=== PATIENT | male | born 1940 | race Caucasian/White ===

== ENCOUNTER 2019-10-06 13:36 | Emergency (ER) | payer OTHER, MEDICARE ==
--- OUTSIDE RECORDS SUMMARY | 2019-10-06 13:39 | XMS REPORT ---
:1940 [facility] [address] [place] [address] Care Team Providers Name Role Phone Unavailable Unavailable Unavailable Problems This patient has no known problems. Allergies, Adverse Reactions, Alerts This patient has no known allergies or adverse reactions. Medications This patient has no known medications. Encounters Start End Encounter Admission Attending Care Care Encounter Date/Time Date/Time Type Type Clinicians Facility Department ID 2019-02-12 Inpatient [facility] [id number] 05:31:00 2019-01-26 2019-01-26 Outpatient [facility] 7501 12:51:00 12:51:00 2018-12-27 2018-12-27 Outpatient [facility] 7500 07:50:00 07:50:00
--- OUTSIDE RECORDS SUMMARY | 2019-10-06 13:39 | XMS REPORT | Summary of Care ---
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 Refills: 0 Active Carvedilol 12.5 MG Oral Tablet TAKE 1 TABLET TWICE DAILY. Refills: 0 Active Atorvastatin Calcium 10 MG Oral Tablet TAKE 1 TABLET TWICE DAILY Refills: 0 Active Levothyroxine Sodium 25 MCG Oral Tablet TAKE 1 TABLET DAILY. 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9) Status: Active Name Dates Details Family history of cardiac disorder (V17.49, Z82.49) Status: Active Social History Name Dates Details - Status: Name Dates Details Former smoker Vital Signs Date Test Result Details [id number] BP Systolic 155 mm[Hg] Status: Comments: Location: LUE; Position: Sitting BP Diastolic 71 mm[Hg] Status: Comments: Location: LUE; Position: Sitting Height 71 in Status: Weight 170 lb Status: Body Mass Index Calculated 23.71 kg/m2 Status: Body Surface Area Calculated 1.97 m2 Status: Heart Rate 68 /min Status: Comments: Location: L Radial; O2 SAT 93 % Status: Comments: Source: RA Results Date Description Value Details Results not documented Plan of Care Name Dates Details Planned Observations [N] 2D Echo complete, with Doppler [id number] On: 25-Mar-2020 Intent Planned Goals not documented Planned Encounters Appointment; AGUSTIN ROTH On: 25-Mar-2020 13:00 Appointment; MAURO CALDERON M.D. On: 25-Mar-2020 14:00 Instructions Name Dates Details Instructions not documented Encounters Appointment; MAURO CALDERON M.D. On: 09-Jan-2019 15:00 Encounter Diagnosis: Problem not documented Appointment; Neal Barbosa M.D. On: 26-Jan-2019 14:45 Encounter Diagnosis: Problem not documented Appointment; JENNIFER PRESCOTT M.D. On: 30-Jan-2019 11:00 Encounter Diagnosis: Problem not documented Appointment; MAURO CALDERON M.D. On: 30-Jan-2019 13:40 Encounter Diagnosis: Problem not documented Appointment; PROCEDURES, CARDIO On: 12-Feb-2019 11:00 Encounter Diagnosis: Problem not documented Appointment; AGUSTIN ROTH On: 27-Mar-2019 13:00 Encounter Diagnosis: Problem not documented
[2019-10-06 14:48] LABS: Absolute Lymphocytes (CBC) 1.3 K/uL (0.7-4.9); Basophils % 0.1 % (0-1.3); MPV 8.5 fL (7.6-11.3); RBC Red Blood Cell Count 1.43 M/uL (4.33-5.43)
[2019-10-06 14:58] LABS: Protime INR 1.03
[2019-10-06 15:15] LABS: ALT/SGPT 27 U/L (12-78); AST/SGOT 21 U/L (15-37); Albumin 2.7 g/dL (3.4-5.0); Alkaline Phosphatase 67 U/L (45-117); BUN Blood Urea Nitrogen 35 mg/dL (7-18); Bicarbonate 28 mmol/L (21-32); Bilirubin Direct 0.1 mg/dL (0-0.2); Bilirubin Total 0.3 mg/dL (0.2-1.0); CKMB Creatine Kinase MB 1.9 ng/mL (0.3-3.6); Creatine Phosphokinase 70 U/L (39-308); Glucose Level 115 mg/dL (74-106); Lipase 99 U/L (73-393); Potassium 4.2 mmol/L (3.5-5.1); Protein, Total 5.8 g/dL (6.4-8.2); Sodium Level 138 mmol/L (136-145); Troponin (Emerg Dept Use Only) < 0.02 ng/mL (0.0-0.045)
[2019-10-06 15:18] LABS: Thyroid Stimulating Hormone 1.81 uIU/mL (0.360-3.740)
--- NOTE | 2019-10-06 15:24 | RAD REPORT ---
EXAM DESCRIPTION: [facility] Single View10/06/2019 2:46 pm CLINICAL HISTORY: Chest pain COMPARISON: 2011 FINDINGS: The lungs appear clear of acute infiltrate. The heart is normal size IMPRESSION: No acute abnormalities displayed
[2019-10-06 15:31] LABS: Anisocytosis 2+; Blood Morphology Comment NOTED (NOT SEEN); Elliptocytes 2+; Hypochromasia 2+; Macrocytosis 1+; Platelet Estimate DECR; Poikilocytosis 2+; Rouleau 1; Teardrop Cell 1+
[2019-10-06] MEDS ORDERED: NA CHLORIDE 0.9% 1,000 ML ONE (17:23)
[2019-10-06] MEDS ORDERED: DIPHENHYDRAMINE 25 MG TAB/CAP ONE (17:24)
[2019-10-06] MEDS ORDERED: ACETAMINOPHEN 325 MG TABLET ONE (17:24)
--- NOTE | 2019-10-06 17:26 | ER ---
Nurse's Notes [facility] Name: Rod Mccray Age: 79 yrs Sex: Male : 1940 Arrival Date: 10/06/2019 Time: 13:41 Bed 26 Private MD: Jarek Edwards V Diagnosis: Myeloid leukemia-Acute phase Presentation: 10/06 13:53 Presenting complaint: Patient states: denies pain, denies N/V/D, reports productive jl7 cough and states "Just a little bit." states: He had abdominal aorta valve replaced in January 2019, last few weeks he has had decreased energy and appetite; pt appears pale and fatigued in triage. Transition of care: patient was not received from another setting of care. Onset of symptoms was August 2019. Risk Assessment: Do you want to hurt yourself or someone else? Patient reports no desire to harm self or others. Care prior to arrival: None. 13:53 Method Of Arrival: Wheelchair [facility] 13:53 Acuity: CELSO 2 jl 14:04 Initial Sepsis Screen: Does the patient meet any 2 criteria? Mean Arterial Pressure ss (MAP) < 65. HR > 90 bpm. Yes Does the patient have a suspected source of infection? Yes: Productive cough/pneumonia If YES to both, name of provider notified: Sancho LOZOYA Triage Assessment: 14:02 General: Appears uncomfortable, ill, Behavior is calm, cooperative, appropriate for 5 age. Pain: Denies pain. Respiratory: Reports shortness of breath at rest Airway is patent Respiratory effort is even, unlabored, Respiratory pattern is regular, symmetrical, Onset: The symptoms/episode began/occurred last week, the patient has mild shortness of breath. Historical: - Allergies: 14:02 No Known Allergies; jl7 - Home Meds: 14:02 atorvastatin 10 mg oral tab 1 tab once daily [Active]; carvedilol 3.125 mg oral tab 1 jl7 tab every 12 hours [Active]; clopidogrel 75 mg oral tab 1 tab once daily [Active]; lisinopril 5 mg Oral tab 1 tab [Active]; levothyroxine 25 mcg tab 1 tab once daily [Active]; - PMHx: 14:02 Hypothyroidism; jl7 - PSHx: 14:02 Aortic valve replacement; jl7 - Immunization history:: Adult Immunizations not up to date. - Coronavirus screen:: The patient has NOT traveled to [place], [place], or [place] in the past 14 days. Proceed with normal triage process as indicated. - Social history:: Smoking status: Patient denies any tobacco usage or history of. - Ebola Screening: : No symptoms or risks identified at this time. Screenin:37 Abuse screen: Denies threats or abuse. Denies injuries from another. Nutritional ls4 screening: No deficits noted. Tuberculosis screening: No symptoms or risk factors identified. Fall Risk None identified. Assessment: 14:37 General: Appears in no apparent distress. ill, cachectic, Behavior is calm, cooperative.ls4 14:39 Neuro: Level of Consciousness is obeys commands, lethargic, Oriented to person, place, ls4 time, situation, Reports dizziness. Respiratory:. Respiratory: Airway is patent Respiratory effort is shallow, weak, Respiratory pattern is regular, Breath sounds with crackles in right posterior lower lobe the patient has severe shortness of breath. GI: Abdomen is round non-distended, Bowel sounds present X 4 quads. GI: Abd is soft and non tender X 4 quads. Derm: Skin is dry, Skin is pale, Skin temperature is cool. 15:11 Reassessment: Patient appears in no apparent distress at this time. Patient and/or ls4 family updated on plan of care and expected duration. Pain level reassessed. Patient is alert, oriented x 3, equal unlabored respirations, skin warm/dry/pink. 16:00 Reassessment: Patient appears in no apparent distress at this time. No changes from ls4 previously documented assessment. Patient and/or family updated on plan of care and expected duration. Pain level reassessed. Patient is alert, oriented x 3, equal unlabored respirations, skin warm/dry/pink. 17:35 Reassessment: Patient appears in no apparent distress at this time. No changes from ls4 previously documented assessment. Patient and/or family updated on plan of care and expected duration. Pain level reassessed. Patient is alert, oriented x 3, equal unlabored respirations, skin warm/dry/pink. 17:40 Reassessment: TRANSFUSION PRBC STARTED. CONSENTS SIGNED. ls4 18:59 Reassessment: TRANSFUSION COMPLETE. PT TOLERATED WELL. SEE TRANSFUSION FLOW SHEET FOR ls4 VITAL SIGNS. PT TOLERATED WELL. Cardiovascular: No deficits noted. Respiratory: No deficits noted. 19:20 Reassessment: PLATELET TRANSFUSION STARTED. SEE FLOWSHEET. ls4 19:44 Reassessment: PLATELET TRANSFUSION COMPLETE. SEE FLOW SHEET PATIENT TOLERATED WELL. ls4 20:10 Reassessment: PRBC UNIT 2 STARTED. SEE FLOW SHEET. TRANSFUSION CONTINUED UPON DISCHARGE ls4 WITH EMS. SEE FLOWSHEET. Vital Signs: 14:02 BP 106 / 40; Pulse 104; Resp 19 S; Temp 98.1(O); Pulse Ox 96% on R/A; Weight 77.11 kg jl7 (R); Height 5 ft. 11 in. (180.34 cm) (R); Pain 0/10; 14:30 BP 107 / 52; Pulse 94; Resp 14; Pulse Ox 100% on 2 lpm NC; Pain 0/10; ls4 16:00 Pulse 96; Resp 14; Pulse Ox 100% on 2 lpm NC; Pain 0/10; ls4 17:00 BP 103 / 45; Pulse 98; Resp 14; Temp 98.1(O); Pulse Ox 100% on 2 lpm NC; Pain 0/10; ls4 19:00 BP 118 / 56; Pulse 98; Resp 14; Temp 98.9(O); Pulse Ox 97% on 2 lpm NC; Pain 0/10; ls4 14:02 Body Mass Index 23.71 (77.11 kg, 180.34 cm) jl7 14:30 PT O2 SATURATION DROPS TO 88 PER CENT WHILE SLEEPING. O2 APPLIED. ls4 Vitals: 14:30 Cardiac Rhythm Assessment Regular. ls4 ED Course: 13:41 Patient arrived in ED. ag5 13:41 Jarek Edwards MD is Private Physician. ag5 13:59 Triage completed. jl7 14:02 Arm band placed on right wrist. jl7 14:02 Patient has correct armband on for positive identification. Fall risk band placed. ls4 Placed in gown. Bed in low position. Call light in reach. Side rails up X 1. child monitor on. Pulse ox on. NIBP on. 14:02 Warm blanket given. Pillow given. Verbal reassurance given. ls4 14:02 No provider procedures requiring assistance completed. Inserted saline lock: 20 gauge ls4 in left antecubital area, using aseptic technique. Blood collected. Patient maintains SpO2 saturation greater than 95% on room air. 14:16 Sancho Collado PA is PHCP. jr8 14:16 Isacc Shelton MD is Attending Physician. jr8 14:36 Josette Springer, RN is Primary Nurse. ls4 14:36 EKG done, by fire technology instructor. reviewed by Sancho LOZOYA. at1 16:04 TSH Sent. ls4 16:04 T4 Free Sent. ls4 16:04 TS Sent. ls4 17:31 Bb Add On Sent. ls4 20:29 Patient transferred, IV remains in place. ls4 Administered Medications: 14:17 CANCELLED (Physician Discretion): NS 0.9% (30 ml/kg) 30 ml/kg IV at bolus once; Sepsis 8 Protocol 17:40 Drug: Tylenol 650 mg Route: PO; ls4 18:11 Follow up: Response: No adverse reaction ls4 17:40 Drug: Benadryl 25 mg Route: PO; ls4 18:10 Follow up: Response: No adverse reaction ls4 Outcome: 17:26 ER care complete, transfer ordered by . jr8 20:29 Patient left the ED. ls4 20:29 Transferred to [facility], Transfer form completed. X-rays sent w/ patient. ls4 20:29 Transferred Note: REPORT TO ARLENE GILLIAM RN [facility] 20:29 Condition: stable 20:29 Discharge instructions given to patient, family, Instructed on the need for transfer. Signatures: Shreya Brower RN RN Sancho Collado PA PA jr8 Meron Felton, buffer machine EKG Tat1 Karen Stevens RN RN jl7 Josette Springer, SHAINA RN ls4 Stephanie Davis ag5 Corrections: (The following items were deleted from the chart) 13:59 13:53 Initial Sepsis Screen: Does the patient meet any 2 criteria? Systolic BP < 90 jl7 mmHg. HR > 90 bpm. Yes Does the patient have a suspected source of infection? No. Patient's initial sepsis screen is negative. jl7 14:05 14:04 Initial Sepsis Screen: Does the patient meet any 2 criteria? Mean Arterial jl7 Pressure (MAP) < 65. HR > 90 bpm. Yes Does the patient have a suspected source of infection? Yes: Productive cough/pneumonia jl7 14:08 14:04 Initial Sepsis Screen: Does the patient meet any 2 criteria? Mean Arterial ss Pressure (MAP) < 65. HR > 90 bpm. Yes Does the patient have a suspected source of infection? Yes: Productive cough/pneumonia jl7 17:08 14:37 Cardiovascular: Rhythm is ls4 ls4 10/07 00:49 02 14:37 Cardiovascular: Rhythm is ls4 ls4 10/07 00:49 02 14:37 Reassessment: BLOOD TRANSFUSION STARTED ls4 ls4 10/07 00:51 02 18:59 Reassessment: TRANSFUSION COMPLETE. PT TOLERATED WELL. SEE TRANSFUSION FLOW ls4 SHEET FOR VITAL SIGNS. ls4
--- NOTE | 2019-10-06 17:27 | EDPHYS ---
Physician Documentation [facility] Name: Rod Mccray Age: 79 yrs Sex: Male : 1940 Arrival Date: 10/06/2019 Time: 13:41 Bed 26 Private MD: Jarek Edwards V ED Physician Isacc Shelton HPI: 10/06 15:08 This 79 yrs old Male presents to ER via Wheelchair with complaints of jr8 Breathing Difficulty, General Weakness, Decreased Appetite. 15:08 The patient has shortness of breath at rest. Onset: The symptoms/episode began/occurred jr8 gradually, 2 week(s) ago. Duration: The symptoms are continuous, and are steadily getting worse. The patient's shortness of breath has no apparent modifying factors. Associated signs and symptoms: Pertinent positives: dizziness, fatigue, malaise, increase in sleep. Severity of symptoms: At their worst the symptoms were moderate in the emergency department the symptoms are unchanged. The patient has not experienced similar symptoms in the past. The patient has not recently seen a physician. of patient stated that she noticed him sleeping more as of lately. Stated that it is now to the point where he will sleep days on end. Looks very pale and now is slurring speech. Also with decreased appetite and loss of weight. Historical: - Allergies: 14:02 No Known Allergies; jl7 - Home Meds: 14:02 atorvastatin 10 mg oral tab 1 tab once daily [Active]; carvedilol 3.125 mg oral tab 1 jl7 tab every 12 hours [Active]; clopidogrel 75 mg oral tab 1 tab once daily [Active]; lisinopril 5 mg Oral tab 1 tab [Active]; levothyroxine 25 mcg tab 1 tab once daily [Active]; - PMHx: 14:02 Hypothyroidism; jl7 - PSHx: 14:02 Aortic valve replacement; jl7 - Immunization history:: Adult Immunizations not up to date. - Coronavirus screen:: The patient has NOT traveled to [place], [place], or [place] in the past 14 days. Proceed with normal triage process as indicated. - Social history:: Smoking status: Patient denies any tobacco usage or history of. - Ebola Screening: : No symptoms or risks identified at this time. ROS: 17:33 Eyes: Negative for injury, pain, redness, and discharge, ENT: Negative for injury, jr8 pain, and discharge, Neck: Negative for injury, pain, and swelling, Cardiovascular: Negative for chest pain, palpitations, and edema, Respiratory: Negative for shortness of breath, cough, wheezing, and pleuritic chest pain, Abdomen/GI: Negative for abdominal pain, nausea, vomiting, diarrhea, and constipation, Back: Negative for injury and pain, MS/Extremity: Negative for injury and deformity. 17:33 Constitutional: Positive for fatigue, malaise. 17:33 Skin: Positive for pallor. 17:33 Neuro: Positive for altered mental status, dizziness, speech changes. Exam: 17:33 Eyes: Pupils equal round and reactive to light, extra-ocular motions intact. Lids and jr8 lashes normal. Conjunctiva and sclera are non-icteric and not injected. Pallor in appearance. Cornea within normal limits. Periorbital areas with no swelling, redness, or edema. ENT: Nares patent. No nasal discharge, no septal abnormalities noted. Tympanic membranes are normal and external auditory canals are clear. Oropharynx with no redness, swelling, or masses, exudates, or evidence of obstruction, uvula midline. Mucous membranes moist. Neck: Trachea midline, no thyromegaly or masses palpated, and no cervical lymphadenopathy. Supple, full range of motion without nuchal rigidity, or vertebral point tenderness. No Meningismus. Cardiovascular: Regular rate and rhythm with a normal S1 and S2. No gallops, murmurs, or rubs. Normal PMI, no JVD. No pulse deficits. Respiratory: Lungs have equal breath sounds bilaterally, clear to auscultation and percussion. No rales, rhonchi or wheezes noted. No increased work of breathing, no retractions or nasal flaring. Abdomen/GI: Soft, non-tender, with normal bowel sounds. No distension or tympany. No guarding or rebound. No evidence of tenderness throughout. Back: No spinal tenderness. No costovertebral tenderness. Full range of motion. MS/ Extremity: Pulses equal, no cyanosis. Neurovascular intact. Full, normal range of motion. 17:33 Skin: Appearance: Color: pale, Temperature: cool. 17:33 Neuro: Orientation: to person, place \T\ time. Mentation: able to follow commands, slow to respond, Memory: appropriate for stated age, Cranial nerves: CN I not tested, CN II- XII are normal as tested, visual amador are intact. extraocular movements are intact, Facial palsy and sensory deficits are absent. Nystagmus is absent. Speech is slowed, slurred, Tongue strength is normal, Motor: moves all fours, strength is 4/5 in the right arm, left arm, right leg and left leg, Sensation: no obvious gross deficits, Gait: not tested. seizure activity, is not displayed by the patient, Abnormal movements: there are no abnormal movements. Vital Signs: 14:02 BP 106 / 40; Pulse 104; Resp 19 S; Temp 98.1(O); Pulse Ox 96% on R/A; Weight 77.11 kg jl7 (R); Height 5 ft. 11 in. (180.34 cm) (R); Pain 0/10; 14:30 BP 107 / 52; Pulse 94; Resp 14; Pulse Ox 100% on 2 lpm NC; Pain 0/10; ls4 16:00 Pulse 96; Resp 14; Pulse Ox 100% on 2 lpm NC; Pain 0/10; ls4 17:00 BP 103 / 45; Pulse 98; Resp 14; Temp 98.1(O); Pulse Ox 100% on 2 lpm NC; Pain 0/10; ls4 19:00 BP 118 / 56; Pulse 98; Resp 14; Temp 98.9(O); Pulse Ox 97% on 2 lpm NC; Pain 0/10; ls4 14:02 Body Mass Index 23.71 (77.11 kg, 180.34 cm) jl7 14:30 PT O2 SATURATION DROPS TO 88 PER CENT WHILE SLEEPING. O2 APPLIED. ls4 MDM: 14:16 Patient medically screened. jr8 17:00 ED course: Long discussion with patient and family about severity of condition and need jr8 for transfer. Both understood . 17:33 Differential diagnosis: Myocardial Infarction pneumonia, pulmonary edema, Pulmonary jr8 Embolism Sepsis Acute anemia, GI bleed, Myocarditis, endocarditis, acute CHF, Cardiomyopathy, MDS. Data reviewed: vital signs, nurses notes, lab test result(s), EKG, radiologic studies, CT scan, plain films, ultrasound. Data interpreted: Pulse oximetry: on room air is 100 %. Interpretation: normal. Counseling: I had a detailed discussion with the patient and/or guardian regarding: the historical points, exam findings, and any diagnostic results supporting the discharge/admit diagnosis, lab results, radiology results, the need to transfer to another facility, [facility] does not immediately have the required specialist. ED course: Patient has history with [facility] and would like to be transferred there if possible. We reached out to them and accepted transfer . 10/06 14:11 Order name: Basic Metabolic Panel mg2 10/06 14:11 Order name: Blood Culture Adult (2) mg2 10/06 14:11 Order name: CBC with Diff mg2 10/06 14:11 Order name: Ckmb mg2 10/06 14:11 Order name: CPK mg2 10/06 14:11 Order name: Lactate mg2 10/06 14:11 Order name: LFT's mg2 10/06 14:11 Order name: Lipase mg2 10/06 14:11 Order name: Procalcitonin mg2 10/06 14:11 Order name: Protime (+inr) mg2 10/06 14:11 Order name: Ptt, Activated mg2 10/06 14:11 Order name: Troponin (emerg Dept Use Only) mg2 10/06 14:11 Order name: Urine Microscopic Only [facility] [place] [place] 10/06 14:17 Order name: TS [facility] 10/06 14:28 Order name: T4 Free [facility] 10/06 14:28 Order name: TSH [facility] 10/06 14:42 Order name: Glucose, Ancillary Testing; Complete Time: 15:29 EDMS 10/06 15:00 Order name: Protime (+INR); Complete Time: 15:29 EDMS 10/06 15:00 Order name: PTT, Activated Partial Thromb; Complete Time: 15:29 EDMS 10/06 15:16 Order name: Basic Metabolic Panel; Complete Time: 15:29 EDMS 10/06 15:16 Order name: Liver (Hepatic) Function; Complete Time: 15:29 EDMS 10/06 15:16 Order name: Creatine Phosphokinase; Complete Time: 15:29 EDMS 10/06 15:16 Order name: CKMB Creatine Kinase MB; Complete Time: 15:29 EDMS 10/06 15:16 Order name: Troponin (Emerg Dept Use Only); Complete Time: 15:29 EDMS 10/06 15:16 Order name: Lipase; Complete Time: 15:29 EDMS 10/06 15:19 Order name: Lactate; Complete Time: 15:29 EDMS 10/06 15:19 Order name: T4 Free; Complete Time: 15:29 EDWI 10/06 15:19 Order name: Thyroid Stimulating Hormone; Complete Time: 15:29 EDMS 10/06 15:27 Order name: Procalcitonin; Complete Time: 15:29 EDMS 10/06 14:11 Order name: Chest Single View XRAY [facility] [place] [place] 10/06 14:11 Order name: Accucheck; Complete Time: 14:51 [facility] [place] [place] 10/06 14:11 Order name: Cardiac monitoring; Complete Time: 14:51 [facility] [place] 10/06 14:11 Order name: EKG - Nurse/Tech; Complete Time: 14:51 [facility] [place] 10/06 14:11 Order name: IV Saline Lock - Large Bore; Complete Time: 14:51 [facility] [place] 10/06 14:11 Order name: Labs collected and sent; Complete Time: 14:51 [facility] [place] [place] 10/06 14:11 Order name: O2 Per Protocol; Complete Time: 14:51 [facility] [place] [place] 10/06 14:11 Order name: O2 Sat Monitoring; Complete Time: 14:50 [facility] [place] [place] 10/06 14:11 Order name: Urine Dipstick-Ancillary (obtain specimen) [facility] [place] [place] 10/06 14:38 Order name: Echo w/ Doppler [facility] 10/06 15:28 Order name: CBC with Automated Diff; Complete Time: 15:59 EDWI 10/06 15:30 Order name: Manual Differential; Complete Time: 15:59 EDWI 10/06 15:40 Order name: RAD; Complete Time: 15:59 EDWI 10/06 15:41 Order name: Type and Screen [facility] 10/06 16:36 Order name: Bb Add On bd Administered Medications: 14:17 CANCELLED (Physician Discretion): NS 0.9% (30 ml/kg) 30 ml/kg IV at bolus once; Sepsis [facility] Protocol 17:40 Drug: Tylenol 650 mg Route: PO; ls4 18:11 Follow up: Response: No adverse reaction ls4 17:40 Drug: Benadryl 25 mg Route: PO; ls4 18:10 Follow up: Response: No adverse reaction ls4 Disposition: 17:38 Critical Care:. [facility] Disposition: 10/06/19 17:26 Transfer ordered to Other Acute Care Facility. Diagnosis is Myeloid leukemia - Acute phase . - Reason for transfer: Higher level of care. - Accepting physician is Dr. Santillan. - Condition is Fair. - Problem is new. - Symptoms are unchanged. Critical care time excluding procedures: 17:38 Critical care time: Bedside Care: 20 minutes, Consultation: 10 minutes, Family jr8 Intervention: 10 minutes. Total time: 40 minutes Addendum: 10/08/2019 08:00 Co-signature as Attending Physician, Isacc Shelton MD I agree with the assessment and c melgar plan of care. Signatures: Dispatcher [employer] EDIsacc Jenkins MD MD cha Roszak, Josh, PA PA jr8 Karen Stevens, RN RN jl7 Robe Knight RN RN mg2 Josette Springer RN RN ls4 Corrections: (The following items were deleted from the chart) 10/06 14:17 14:11 NS 0.9% (30 ml/kg) 30 ml/kg IV at bolus once; Sepsis Protocol ordered. mg2 jr8 20:29 17:26 10/06/2019 17:26 Transfer ordered to Other Acute Care Facility. Diagnosis is ls4 Myeloid leukemia - Acute phase . Reason for transfer: Higher level of care. Accepting physician is Dr. Santillan. Condition is Fair. Problem is new. Symptoms are unchanged. jr8
--- NOTE | 2019-10-06 18:43 | EKG ---
Test Date: 2019-10-06 Test Time: 14:17:09 Gauge Maker: KATHERINE MEASUREMENT RESULTS: Intervals: Rate: 97 LA: 140 QRSD: 110 QT: 368 QTc: 467 Vida: P: -4 LA: 140 QRS: -49 T: 101 INTERPRETIVE STATEMENTS: Normal sinus rhythm Left anterior fascicular block Moderate voltage criteria for LVH, may be normal variant ST & T wave abnormality, consider lateral ischemia Prolonged QT Abnormal ECG Compared to ECG 04/20/2008 09:21:01 Left ventricular hypertrophy now present ST (T wave) deviation now present Possible ischemia now present Prolonged QT interval now present Intraventricular conduction delay no longer present Electronically Signed On 10-06-19 18:43:10 ASSOCIATE MUSIC PROFESSOR by Etienne Urena
[2019-10-06] MEDS ORDERED: LEVALBUTEROL 0.63 MG/3 ML NEB ONE ×2 (21:11)
[2019-10-06] MEDS ORDERED: IPRATROPIUM BROM 0.5MG/2.5ML ONE (21:12)
--- NOTE | 2019-10-07 08:00 | ECHO ---
HEIGHT: 5 ft 11 in WEIGHT: 170 lb oz DATE OF STUDY: 10/06/[address]: José Miguel Collado 2-DIMENSIONAL: YES M.MODE: YES DOPPLER: YES COLOR FLOW: YES TDS: NO PORTABLE: YES DEFINITY: NO BUBBLE STUDY: NO DIAGNOSIS: AORTIC VALVE REPLACEMENT, FATIGED ANEMIC CARDIAC HISTORY: CATHERIZATION: YES SURGERY: NO PROSTHETIC VALVE: NO PACEMAKER: YES MEASUREMENTS (cm) DIASTOLIC (NORMALS) SYSTOLIC (NORMALS) IVSd 1.2 (0.6-1.2) LA Diam 3.1 (1.9-4.0) LVEF 70% LVIDd 3.8 (3.5-5.7) LVIDs 2.3 (2.0-3.5) %FS 39% LVPWd 1.3 (0.6-1.2) Ao Diam 2.7 (2.0-3.7) 2 DIMENSIONAL ASSESSMENT: RIGHT ATRIUM: NORMAL LEFT ATRIUM: NORMAL RIGHT VENTRICLE: NORMAL LEFT VENTRICLE: LEFT VENTRICULAR HYPERTROPHY TRICUSPID VALVE: NORMAL MITRAL VALVE: NORMAL PULMONIC VALVE: NORMAL AORTIC VALVE: BIOPROSTHETIC TRANSCATHETER AORTIC VALVE REPLACEMENT PERICARDIAL EFFUSION: NONE AORTIC ROOT: NORMAL LEFT VENTRICULAR WALL MOTION: NORMAL DOPPLER/COLOR FLOW: IMPAIRED LEFT VENTRICULAR RELAXATION. NO AORTIC STENOSIS OR AORTIC REGURGITATION. MILD TRICUSPID REGURGITATION. NORMAL RIGHT VENTRICULAR SYSTOLIC PRESSURE. COMMENTS: NORMAL LEFT VENTRICULAR EJECTION FRACTION. LEFT VENTRICULAR HYPERTROPHY. BIOPROSTHETIC AORTIC VALVE WITH NO AORTIC STENOSIS OR AORTIC REGURGITATION. MILD TRICUSPID REGURGITATION. TECHNOLOGIST: Myles CHAKRABORTY
[2019-10-08 11:12] VITALS: BP 118/56; TEMP 98.9; O2SAT 97
== END 2019-10-06 20:29 ==
LOC: ER 13:36
PROC: 30233R1 Transfusion of Nonautologous Platelets into Peripheral Vein, Percutaneous Approach (ICD-10-PCS; principal; 2019-10-06)
PROC: 30233N1 Transfusion of Nonautologous Red Blood Cells into Peripheral Vein, Percutaneous Approach (ICD-10-PCS; 2019-10-06)
DX: C92.00 Acute myeloblastic leukemia, not having achieved remission (principal); E03.9 Hypothyroidism, unspecified; Z95.4 Presence of other heart-valve replacement
CPT/HCPCS: 93005; 93306; 87040 ×2; 85025; 80048; 36415; 86900; 86850; 82550; 85610; 86901; 82947; 80076; 83605; 85730; 84443; 84484; 82553; 84439; 83690; 84145; 71045; 36430; P9035; P9016 ×2; J7040; 99285

== ENCOUNTER 2020-02-03 13:33 | Emergency (ER) | payer OTHER, MEDICARE ==
--- OUTSIDE RECORDS SUMMARY | 2020-02-03 13:43 | XMS REPORT | Continuity of Care Document ---
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 Medica l (disorder) Center,[facility] 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 Medical (disorder) Center,[facility] [place] NONRHEUMATIC Active [facility] AORTIC (VALVE) Medic al STENOSIS Center Medications Medication Details Route Status Patient Ordering Order Source Instructions Provider Date clopidogrel 75 75 mg = 1 tab, Active [place] mg oral tablet PO, Daily, # 30 2019 M edical tab, 6 Center Refill(s) carvedilol 3.125 3.125 mg = 1 Active [place] mg oral tablet tab, PO, Q12H, 2019 [place] # 60 tab, 3 Center Refill(s) lisinopril 5 mg 5 mg = 1 tab, Active [place] oral tablet PO, Daily, # 30 2019 [facility] peter tab, 1 Center Refill(s) Aspirin 81 MG 81 mg = 1 tab, Active [facility] Enteric Coated PO, Daily, # 30 2019 M edical Tablet tab, 1 Center Refill(s) levothyroxine 25 25 microgram = Active [facility] mcg (0.025 mg) 1 tab, PO, 2019 Medica l oral tablet Daily, # 30 Center tab, 1 Refill(s) atorvastatin 10 10 mg = 1 tab, Active 02/13/ M [facility] [place] mg oral tablet PO, Daily, # 30 2019 M edical tab, 1 Center Refill(s) heparin Notes: porcine Inactive [facility] heparin 2019 [facility] Chondroitin Route: PO, Inactive [facility] Sulfates 400 MG Dosing Weight 2019 Me dical / Glucosamine 77.727, kg, Center hydrochloride Daily, Start 500 MG Oral date: 02/13/19 Tablet 9:00:00 CDT, Duration: 30 day, Stop date: 03/14/19 9:00:00 CDT clopidogrel Notes: (Same Inactive [place] As: Plavix) 2019 [facility] Calcitrate with Notes: (Same Inactive [facility] D As: OsCal-D 2019 Medical 250) Center Vitamin C Notes: (Same Inactive 02/13[facility] as: Vitamin C) 2019 [facility] Aspirin Notes: Do not Inactive 02/13[facility] crush or chew. 2019 Medical (Same As: Center Ecotrin) Thyroxine Notes: Take 1 Inactive 02/13[facility] [place] hour before or 2019 Medical 2 hours after Center meal; Enteral feeds may interefere with the absorption of this medication. (Same as:Levothroid) Lisinopril Notes: (Same Inactive 02/13[facility] [place] as: Prinivil, 2019 [facility] Zestril) Center sodium phosphate Notes: Infuse Inactive 02/13[facility] over 4 hour. Do [facility] Medical not infuse Center phosphorous concurrently in the same line as TPN or IVF that contains calcium. For double lumen central lines, phosphorous may be infused in a separate lumen from TPN. Potassium Notes: (Same Inactive 02/13[facility] Chloride as: Potassium 2019 [facility] Chloride) Center potassium Notes: (Same Inactive 02/13[facility] phosphate as: K 2019 Medical Phosphate.) Do [place] not infuse phosphorous concurrently in the same line as TPN or IVF that contains calcium. For double lumen central lines, phosphorous may be infused in a separate lumen from TPN. 1 mMol phoshate has 1.47 mEq potassium Infuse over 4 hours Calcium Notes: WASTE: Inactive [facility] Gluconate F/P - Sink; E - 2019 [facility]ica [facility] Bin Magnesium Oxide Notes: (Same Inactive 02/13[facility] as: Mag-Ox 400) [address] [place] [address] Magnesium oxide [place] [id number] elemental magnesium Dose=____mg magnesium oxide (___mg elemental magnesium) Calcium Notes: (Same Inactive [place] Carbonate 500 MG As: Tums) 2019 Medic al Chewable Tablet Calcium [place] Carbonate 500 mg = 200 mg elemental calcium Dose = mg calcium carbonate ( mg elemental calcium) Magnesium Notes: WASTE: Inactive [place] Sulfate F/P - Sink; E - [address] [facility] Bin potassium Notes: (Same Inactive [place] phosphate-sodium as: Phos-NaK) 2019 edical phosphate 250 Each 1.5 gm pkt Ce nter mg-280 mg-160 mg has 250mg oral powder for phosphorous. reconstitution Mix w/2.5oz water and stir. carvedilol Notes: Give No Longer [place] with food. Active 2019 Medical (Same As: Center Coreg) atorvastatin Notes: (Same No Longer [place] As: Lipitor) Active 2019 [facility] Center Nicardipine Notes: Same as: No Longer [place] Cardene Active 2019 Medical Concentration: [place] (0.2 mg /1 ml ) pantoprazole Notes: Tablet No Longer [place] should not be Active 2019 Medical chewed or Center crushed. (Same as: Protonix) carvedilol Notes: Give Inactive [place] with food. 2019 Medical (Same As: Center Coreg) Cefazolin Notes: (Same Inactive [place] As: Ancef, 2019 Medical Kefzol) Center MEDICATION WASTE Product Size: 1000 mg Product Wasted: ___ mg glycopyrrolate Route: IV, Drug Inactive [place] (ANES) form: INJ, 2019 Medical ONCE, Stop Center date: 02/12/19 11:35:00 CDT neostigmine Route: IV, Drug Inactive [facility] (ANES) form: INJ, 2019 Medical ONCE, Stop Center date: 02/12/19 11:35:00 CDT Naloxone Notes: Same as In[place] Narcan 2019 [facility] Flumazenil Notes: (Same Inactive [place] as: Romazicon) 2019 Medical Center Ondansetron Notes: (Same Inactive [place] as: Zofran) 2019 Medical MEDICATION Center WASTE Product Size: 4 mg Product Wasted: ___ mg Hydralazine Notes: (Same Inactive [place] as: Apresoline) 2019 Medical Push over 5 Center minutes Oxycodone Notes: (Same Inactive [place] as: 2019 Medical 'Roxicodone) Center Ibuprofen Notes: (Same Inactive [facility] as: Motrin) "Do 2019 Medical Not Crush" Center Take with food. protamine (ANES) Route: IV, Drug Inactive [place] 10 mg form: INJ, 2018 Medical Start date: Center 02/12/19 10:52:00 CDT, Stop date: 02/12/19 11:52:00 CDT calcium chloride Route: IV, Drug Inactive [place] (ANES) form: INJ, 2018 Medical ONCE, Stop Center date: 02/12/19 10:41:00 CDT ondansetron Route: IV, Drug Inactive [place] (ANES) form: INJ, 2018 Medical ONCE, Stop Center date: 02/12/19 10:41:00 CDT acetaminophen Route: IV, Drug Inactive 02/12/ M [facility] [place] (ANES) 10 mg form: INJ, 2018 Medical Start date: Center 02/12/19 10:09:00 CDT, Stop date: 02/12/19 11:09:00 CDT heparin (ANES) Route: IV, Drug Inactive [place] form: INJ, 2018 Medical ONCE, Stop Center date: 02/12/19 9:55:00 CDT EPINEPHrine Route: IV, Drug Inactive [place] (ANES) form: INJ, 2018 Medical ONCE, Stop Center date: 02/12/19 9:50:00 CDT norepinephrine Route: IV, Drug Inactive [place] (ANES) form: INJ, 2018 Medical ONCE, Stop Center date: 02/12/19 9:30:00 CDT vasopressin Route: IV, Drug Inactive [place] (ANES) form: INJ, 2018 Medical ONCE, Stop Center date: 02/12/19 9:24:00 CDT lidocaine (ANES) Route: IV, Drug Inactive [place] form: INJ, 2019 Medical ONCE, Stop Center date: 02/12/19 9:19:00 CDT propofol (ANES) Route: IV, Drug Inactive [place] form: INJ, 2019 Medical ONCE, Stop Center date: 02/12/19 9:14:00 CDT rocuronium Route: IV, Drug Inactive [place] (ANES) form: INJ, 2019 Medical ONCE, Stop Center date: 02/12/19 9:14:00 CDT fentaNYL (ANES) Route: IV, Drug Inactive [place] form: INJ, 2019 Medical ONCE, Stop Center date: 02/12/19 9:14:00 CDT ceFAZolin (ANES) Route: IV, Drug Inactive [facility] form: INJ, 2019 Medical ONCE, Stop Center date: 02/12/19 9:09:00 CDT Docusate Notes: (Same No Longer [place] as: Colace) (Do Active 2018 Medical Not Crush) Center POLYETHYLENE Notes: Dissolve No Longer 02/12/ [facility] GLYCOL 3350 in 8 oz of Active 2019 Medical water or juice. Center (Same as: Miralax) Sodium Chloride Route: IV, Inactive [place] 0.9% IV (ANES) Total Volume: 2019 Med ical 1000 mL 1,000, Start Center date: 02/12/19 8:25:00 CDT, Stop date: 02/12/19 9:25:00 CDT Ondansetron Notes: (Same No Longer [place] as: Zofran) Active 2019 Medical MEDICATION Center WASTE Product Size: 4 mg Product Wasted: ___ mg Acetaminophen Notes: Infuse No Longer [facility] over 15 minutes Active 2019 Medical Do not exceed Center 4gm/day of acetaminophen MEDICATION WASTE Product Size: 1000 mg Product Wasted: ___ mg Nicardipine Notes: Same as: Inactive [place] Cardene 2019 Medical Concentration: Center (0.2 mg /1 ml ) atorvastatin 10 10 mg = 1 tab, No Longer [facility] mg oral tablet PO, Daily, 0 Active 2019 [facility] peter Refill(s) Center Exparel Notes: (Same No Longer [facility] as: Exparel) Active 2019 Medical NOT FOR IV Center use Postoperative analgesia: Infiltration (local): Dose is based on surgical site and volume required to cover the area (in general, the maximum total dose is 266 mg). Bunionectomy: 7 mL into the tissues surrounding the osteotomy and 1 mL into the subcutaneous tissue of the surgical site (total dose = 8 mL [106 mg]) Hemorrhoidectom y: 30 mL (20 mL vial diluted with 10 mL NS) divided and administered as 6 injections of 5 mL each (total dose = 30 mL [266 mg]) Interscalene brachial plexus nerve block: Single dose: Total shoulder arthroplasty or rotator cuff repair: 133 mg (10 mL) Sodium Chloride 250 mL, 250 Inactive [place] 0.9% (Bolus) IV ml/hr, Infuse 2019 [place] Over: 1 hr, Center Route: IV, 250, Drug form: INJ, ONCALL, Priority: Routine, Dosing Weight 77.273 kg, Start date: 02/12/19 6:00:00 CDT, Duration: 1 doses or times Sodium Chloride 750 mL, Rate: No Longer [place] 0.9% IV 750 mL 75 ml/hr, Active 2019 Medical Infuse over: 10 Center hr, Route: IV, Dosing Weight 77.273 kg, Total Volume: 750, Start date: 02/12/19 5:53:00 CDT, Duration: 24 hr, Stop date: 02/13/19 5:52:00 CDT, 1.98, m2 Sodium Chloride 250 mL, Rate: No Longer [place] 0.9% (titrate) To prime line Active 2019 Med ical 250 mL and flush Center remaining blood products., Dosing Weight 77.273, kg, Route: IV, Total Volume: 250, Start Date: 02/12/19 5:53:00 CDT, Duration: 30 day, Stop date: 03/14/19 5:52:00 CDT, Replace Every: 24 hr simvastatin 10 10 mg = 1 tab, Active mg oral tablet PO, Bedtime, # 2018 [place] 30 tab, 3 Refill(s) clopidogrel 75 75 mg = 1 tab, Active mg oral tablet PO, Daily, # 2019 [place] tab, 6 Refill(s) carvedilol 3.125 3.125 mg = 1 Active [facility] mg oral tablet tab, PO, Q12H, 2019 [place] # 60 tab, 3 Refill(s) Calcitrate with Notes: (Same Inactive D As: OsCal-D 2019 [place] 250) Vitamin C Notes: (Same Inactive as: Vitamin C) 2019 [place] clopidogrel Notes: (Same Inactive As: Plavix) 2019 [place] Aspirin 81 MG Notes: Take Inactive Chewable Tablet with food. 2019 [place] and Thyroxine Notes: Take 1 Inactive [facility] hour before or 2019 [place] 2 hours after meal; Enteral feeds may interefere with the absorption of this medication. (Same as:Levothroid) simvastatin 10 10 mg = 1 tab, Inactive 05/04/ M H mg oral tablet PO, Bedtime, # 2019 [place] 90 tab, 2 Refill(s), called to pharmacy clopidogrel 75 75 mg = 1 tab, Inactive 05/04/ M H mg oral tablet PO, Daily, # 90 [place] tab, 2 Refill(s), called to pharmacy carvedilol 3.125 3.125 mg = 1 Inactive 05/04/ M H mg oral tablet tab, PO, Q12H, 2019 [place] # 180 tab, 0 Refill(s), called to pharmacy Streptococcus Notes: Shake No Longer pneumoniae well prior to Active 2018 [facility] serotype 1 use (Same as: capsular antigen Prevnar 13) diphtheria [id number] protein conjugate vaccine / Streptococcus pneumoniae serotype 14 capsular antigen diphtheria [id number] protein conjugate vaccine / Streptococcus pneumoniae serotype 18C capsular antigen d Simvastatin Notes: (Same No Longer as: Zocor) Active 2019 [place] Coreg Notes: Give No Longer with food. Active 2018 [place] (Same As: Coreg) Nitroglycerin Notes: (Same No Longer as:Nitroquick, Active 2018 [place] Nitrostat) "Do Not Crush" Sublingual tablet Acetaminophen Notes: (Same No Longer 325 MG / as: [place] Active 2018 [place] Hydrocodone 325/5) Do not Bitartrate 5 MG exceed 4gm/day Oral Tablet of [[place] 5/325] acetaminophen. Vitamin C 500 mg 500 mg = 1 tab, Active oral tablet PO, Daily, 0 2018 [place] d Refill(s) Chondroitin-Gluc 500 mg =, PO, Active H osamine Daily, 0 2018 [place] Refill(s) calcium-vitamin 1 tab, PO, Active D 150 mg-100 Daily, 0 2018 [place] units oral Refill(s) tablet levothyroxine 25 25 microgram = Active mcg (0.025 mg) 1 tab, PO, 2018 [place] oral tablet Daily, 0 Refill(s) Allergies, Adverse Reactions, Alerts No Known Medication Allergies Immunizations Immunization Date Given Site Status Last Comments Source Updated pneumococcal 02/13/2019 Right completed Cessor [facility] as 13-valent vaccine Deltoid [facility] Center Results Order Name Results Value Reference Date Interpretation Comments Brii rce Range CHEM PANEL Magnesium 2.1 1.8 - 2.4 02/13 [facility] /[address] [place] [address] CHEM PANEL Bili Direct 0.2 0.0 - 0.3 02/[address] CHEM PANEL Bili Total 0.9 0.2 - 1.3 02/[address] CHEM PANEL Bili 0.7 0.0 - 1.0 02/13 [facility] Indirect [address] CHEM PANEL Total 5.2 6.4 - 8.4 02/13 [facility] Protein [address] CHEM PANEL Globulin 2.1 2.7 - 4.2 02/[address] CHEM PANEL Albumin Lvl 3.1 3.5 - 5.0 02/[address] CHEM PANEL ALT 21 0 - 65 02/[address] CHEM PANEL Alk Phos 49 39 - 136 02/[address] CHEM PANEL A/G Ratio 1.5 0.7 - 1.6 02/[address] CHEM PANEL AST 35 0 - 37 02/[address] CHEM PANEL eGFR 96 02/13 [facility] Comment: The Medical eGFR is Center calculated using the CKD-EPI formula. In most young, healthy individuals the eGFR will be >90 mL/min/1.73m2 . The eGFR declines with age. An eGFR of 60-89 may be normal in some populations, particularly the elderly, for whom the CKD-EPI formula has not been extensively validated. Use of the eGFR is not recommended in the following populations:< br/>
Amelia viduals with unstable creatinine concentration s, including patients and those with serious co-morbid conditions.<b r/>
Patie nts with extremes in muscle mass or diet.

The data above are obtained from the National Kidney Disease Education Program (NKDEP) which additionally recommends that when the eGFR is used in patients with extremes of body mass index for purposes of drug dosing, the eGFR should be multiplied by the estimated BMI. CHEM PANEL Creatinine 0.59 0.50 - 02/13 [facility] Lvl 1.40 [facility] CHEM PANEL Sodium Lvl 139 135 - 145 02/13 [facility]2018 [facility] CHEM PANEL Potassium 3.5 3.5 - 5.1 02/13 [facility] CHEM PANEL Chloride Lvl 106 95 - 109 02/13 [facility] CHEM PANEL CO2 28 24 - 32 02/13 2018 [facility] CHEM PANEL Calcium Lvl 8.0 8.5 - 10.5 02/13 [facility] CHEM PANEL Glucose Lvl 100 70 - 99 02/13 2018 [facility] CHEM PANEL BUN 10 7 - 22 02/13 2018 [facility] CHEM PANEL AGAP 8.5 10.0 - 02/13 [place] 20.0 [facility] CHEM PANEL Phosphorus 2.4 2.5 - 4.5 02/13 [facility] HEMATOLOGY WBC 8.3 3.7 - 10.4 02/13 2018 [facility] HEMATOLOGY Hgb 10.3 14.0 - 02/13 [place] 18.0 [facility] HEMATOLOGY RBC 3.30 4.70 - 02/13 [place] 6.10 [facility] HEMATOLOGY Hct 30.7 42.0 - 02/13 [place] 54.0 [facility] HEMATOLOGY RDW 14.7 11.5 - 02/13 [place] 14.5 [facility] HEMATOLOGY MCHC 33.6 32.0 - 02/13 [place] 36.0 [facility] HEMATOLOGY MCH 31.2 27.0 - 02/13 [facility] [place] 31.0 /2019 [facility] HEMATOLOGY MCV 92.9 80.0 - 02/13 [place] 94.0 [facility] HEMATOLOGY MPV 8.6 7.4 - 10.4 02/13 [facility] HEMATOLOGY Platelet 82 133 - 450 02/13 [facility]2018 [facility] HEMATOLOGY INR 1.14 0.85 - 02/13 [place] 1.17 [facility] HEMATOLOGY PT 14.4 12.0 - 02/13 [facility] 14.7 [facility] HEMATOLOGY PTT 30.5 22.9 - 02/13 [place] 35.8 [facility] HEMATOLOGY Monocytes 11.2 2.0 - 12.0 02/13 [facility] HEMATOLOGY Eosinophils 1.8 0.0 - 4.0 02/13 [facility] /2018 [facility] HEMATOLOGY Neutrophils 6.6 1.5 - 8.1 02/13 [facility] # [facility] HEMATOLOGY Basophils 0.4 0.0 - 1.0 02/13 [facility] HEMATOLOGY Eosinophils 0.1 0.0 - 0.5 02/13 [facility] # [facility] HEMATOLOGY Monocytes # 0.9 0.0 - 0.8 02/13 [facility] HEMATOLOGY Lymphocytes 0.6 1.0 - 5.5 02/13 [facility] HEMATOLOGY Lymphocytes 7.3 20.0 - 02/13 [facility] 40.0 [facility] HEMATOLOGY Segs 79.3 45.0 - 02/13 [facility] 75.0 [facility] PARATHYROID Ca Ion WB 1.05 1.05 - 02/13 [facility] PROFILE . [facility] PARATHYROID Ca Norm WB 1.07 1.05 - 02/13 [facility] PROFILE 1. [facility] HEMATOLOGY Hgb 10.6 14.0 - 02/12 [facility] 18.0 2019 [facility] HEMATOLOGY Hct 31.1 42.0 - 02/12 [place] 54.0 2019 [facility] CHEM PANEL Magnesium 1.8 1.8 - 2.4 02/12 [facility] Lvl /2018 [facility] ELECTROLYTE AGAP 7.8 10.0 - 02/12 [facility] S 20.0 2019 [facility] ELECTROLYTE eGFR 94 02/12 [facility] Comment: The Medical eGFR is Center calculated using the CKD-EPI formula. In most young, healthy individuals the eGFR will be >90 mL/min/1.73m2 . The eGFR declines with age. An eGFR of 60-89 may be normal in some populations, particularly the elderly, for whom the CKD-EPI formula has not been extensively validated. Use of the eGFR is not recommended in the following populations:< br/>
Amelia viduals with unstable creatinine concentration s, including patients and those with serious co-morbid conditions.<b r/>
Patie nts with extremes in muscle mass or diet.

The data above are obtained from the National Kidney Disease Education Program (NKDEP) which additionally recommends that when the eGFR is used in patients with extremes of body mass index for purposes of drug dosing, the eGFR should be multiplied by the estimated BMI. ELECTROLYTE Creatinine 0.61 0.50 - 02/12 [facility] Lvl 1.40 [facility] ELECTROLYTE Sodium Lvl 139 135 - 145 02/12 [facility] [place] [facility] ELECTROLYTE Chloride Lvl 106 95 - 109 02/12 [facility] ELECTROLYTE Potassium 3.8 3.5 - 5.1 02/12 [facility] [address] [place] [address] ELECTROLYTE BUN 12 7 - 22 02/[address] ELECTROLYTE CO2 29 24 - 32 02/[address] ELECTROLYTE Calcium Lvl 8.3 8.5 - 10.5 02/12 [place] 2018 [facility] ELECTROLYTE Glucose Lvl 97 70 - 99 02/[address] HEMATOLOGY Lymphocytes 5.9 20.0 - 02/12 [facility] 40.0 [facility] HEMATOLOGY Monocytes 7.7 2.0 - 12.0 02/[address] HEMATOLOGY Segs 85.7 45.0 - 02/12 [facility] 75.0 [facility] HEMATOLOGY Monocytes # 0.7 0.0 - 0.8 02/[address] HEMATOLOGY Lymphocytes 0.6 1.0 - 5.5 02/12 [facility] HEMATOLOGY Neutrophils 8.1 1.5 - 8.1 02/12 [facility] /2018 [facility] HEMATOLOGY Basophils 0.1 0.0 - 1.0 02/12 [facility] [place] /2019 [facility] HEMATOLOGY Eosinophils 0.6 0.0 - 4.0 02/12 [place] /2019 [facility] HEMATOLOGY Eosinophils 0.1 0.0 - 0.5 02/12 [place] # /2019 [facility] HEMATOLOGY INR 1.17 0.85 - 02/12 [place] 1.17 [facility] HEMATOLOGY PT 14.7 12.0 - 02/12 [place] 14.7 [facility] HEMATOLOGY PTT 32.2 22.9 - 02/12 [place] 35.8 /2019 [facility] HEMATOLOGY Hgb 10.8 14.0 - 02/12 [place] 18.0 /2019 [facility] HEMATOLOGY RBC 3.42 4.70 - 02/12 [place] 6.10 /2018 [facility] HEMATOLOGY MCH 31.5 27.0 - 02/12 [place] 31.0 /2019 [facility] HEMATOLOGY MCV 93.1 80.0 - 02/12 [place] 94.0 /2019 [facility] HEMATOLOGY Hct 31.9 42.0 - 02/12 [place] 54.0 /2019 [facility] HEMATOLOGY RDW 14.8 11.5 - 02/12 [place] 14.5 [facility] HEMATOLOGY Platelet 95 133 - 450 02/12 [place] /2018 [facility] HEMATOLOGY MCHC 33.8 32.0 - 02/12 [place] 36.0 /2019 [facility] HEMATOLOGY WBC 9.5 3.7 - 10.4 02/12 [place] /2018 [facility] HEMATOLOGY MPV 8.6 7.4 - 10.4 02/12 [place] /2018 [facility] PARATHYROID Ca Norm WB 1.09 1.05 - 02/12 [place] PROFILE 1. [facility] PARATHYROID Ca Ion WB 1.12 1.05 - 02/12 [place] PROFILE 1. [facility] HEMATOLOGY POC 302 02/12 [facility] Time HEMATOLOGY POC 281 02/12 [facility] Activated [facility] Time HEMATOLOGY POC 287 02/12 [facility] Activated [facility] Time BLOOD BANK ABO/Rh O POS 02/12 [place] RESULTS /2018 [facility] BLOOD BANK Antibody Negative 02/12 [facility] RESULTS Scrn (02/12/19 5:55 AM) [facility] CARDIAC BNP 404 <=100 02/12 [facility] ENZYMES pg/mL /2018 [facility] CHEM PANEL Magnesium 2.1 1.8 - 2.4 02/12 [place] Lvl /2018 [facility] CHEM PANEL BUN 14 7 - 22 02/12 [facility] CHEM PANEL Chloride Lvl 103 95 - 109 02/12 [facility] CHEM PANEL Creatinine 0.70 0.50 - 02/12 [facility] Lvl 1.40 [facility] CHEM PANEL Sodium Lvl 139 135 - 145 02/12 [facility]2018 [facility] CHEM PANEL Glucose Lvl 101 70 - 99 02/12 [facility] CHEM PANEL Calcium Lvl 9.0 8.5 - 10.5 02/12 [facility] CHEM PANEL CO2 28 24 - 32 02/12 [facility] CHEM PANEL Potassium 4.3 3.5 - 5.1 02/12 [facility] CHEM PANEL eGFR 89 02/12 [facility] Comment: The Medical eGFR is Center calculated using the CKD-EPI formula. In most young, healthy individuals the eGFR will be >90 mL/min/1.73m2 . The eGFR declines with age. An eGFR of 60-89 may be normal in some populations, particularly the elderly, for whom the CKD-EPI formula has not been extensively validated. Use of the eGFR is not recommended in the following populations:< br/>
Amelia viduals with unstable creatinine concentration s, including patients and those with serious co-morbid conditions.<b r/>
Patie nts with extremes in muscle mass or diet.

The data above are obtained from the National Kidney Disease Education Program (NKDEP) which additionally recommends that when the eGFR is used in patients with extremes of body mass index for purposes of drug dosing, the eGFR should be multiplied by the estimated BMI. CHEM PANEL Albumin Lvl 4.1 3.5 - 5.0 02/12 [facility] CHEM PANEL ALT 24 0 - 65 02/12 [facility]2018 [facility] CHEM PANEL AST 30 0 - 37 02/[address] CHEM PANEL Total 7.0 6.4 - 8.4 02/12 [facility] Protein [facility] CHEM PANEL Bili Total 0.9 0.2 - 1.3 02/[address] CHEM PANEL Alk Phos 62 39 - 136 02/12 [facility]2018 [facility] CHEM PANEL B/C Ratio 20 6 - 25 02/12 [facility] CHEM PANEL AGAP 12.3 10.0 - 02/12 [place] 20.0 [facility] CHEM PANEL Globulin 2.9 2.7 - 4.2 02/12 [facility]2018 [facility] CHEM PANEL A/G Ratio 1.4 0.7 - 1.6 02/12 [facility]2018 [facility] HEMATOLOGY Monocytes # 0.6 0.0 - 0.8 02/12 [facility] s [facility] HEMATOLOGY Eosinophils 0.3 0.0 - 0.5 02/12 [facility] # [facility] HEMATOLOGY Lymphocytes 1.0 1.0 - 5.5 02/12 [facility] HEMATOLOGY Basophils # 0.1 0.0 - 0.2 02/12 [facility] [facility] HEMATOLOGY Neutrophils 4.1 1.5 - 8.1 02/12 [facility] HEMATOLOGY Eosinophils 5.3 0.0 - 4.0 02/12 [facility] HEMATOLOGY Basophils 1.0 0.0 - 1.0 02/12 [facility] HEMATOLOGY Monocytes 9.4 2.0 - 12.0 02/12 [facility] HEMATOLOGY Lymphocytes 16.6 20.0 - 02/12 [place] 40.0 [facility] HEMATOLOGY Plt Morph Normal Normal 02/12 [facility] (02/12/19 5:55 AM) [facility] HEMATOLOGY Segs 67.7 45.0 - 02/12 [place] 75.0 [facility] HEMATOLOGY RBC Morph Normal Normal 02/12 [facility] (02/12/19 5:55 AM) [facility] HEMATOLOGY INR 0.99 0.85 - 02/12 [place] 1.17 [facility] HEMATOLOGY PTT 26.3 22.9 - 02/12 [place] 35.8 [facility] HEMATOLOGY PT 12.9 12.0 - 02/12 [place] 14.7 [facility] HEMATOLOGY Platelet 126 133 - 450 02/12 [facility] HEMATOLOGY MPV 9.0 7.4 - 10.4 02/[address] HEMATOLOGY MCV 92.8 80.0 - 02/12 [place] 94.0 [facility] HEMATOLOGY MCH 31.6 27.0 - 02/12 [place] 31.0 [facility] HEMATOLOGY WBC 6.0 3.7 - 10.4 02/12 [place] /2018 [facility] HEMATOLOGY RBC 4.26 4.70 - 02/12 [place] 6.10 [facility] HEMATOLOGY MCHC 34.0 32.0 - 02/12 [place] 36.0 /2018 [facility] HEMATOLOGY RDW 14.7 11.5 - 02/12 [place] 14.5 [facility] URINE AND UA Sq Epi None Seen 02/12 [facility] STOOL /2018 [facility] URINE AND UA Blood Negative Negative 02/12 [facility] STOOL (02/12/19 5:55 AM) /2018 [facility] URINE AND UA Bacteria Occasional None Seen 02/12 [place] STOOL /HPF /HPF /2018 [facility] URINE AND UA Leuk Est Negative Negative 02/12 [facility] (02/12/19 5:55 AM) [facility] URINE AND UA Nitrite Negative Negative 02/12 [facility] STOOL (02/12/19 5:55 AM) /2018 [facility] URINE AND UA <1.0 0.1 - 1.0 02/12 [facility] Urobilinogen /2018 [facility] URINE AND UA Amorph Many /HPF None Seen 02/12 [facility] STOOL Eva /HPF /2018 [facility] URINE AND UA Mucus Few /LPF None Seen 02/12 [facility] STOOL /LPF /2018 [facility] URINE AND UA Color Yellow Yellow 02/12 [facility] STOOL *NA* /2018 [facility] (02/12/19 5:55 AM) [place] URINE AND UA pH 7.0 5.0 - 8.0 02/12 [facility] STOOL /2018 [facility] URINE AND UA Spec Grav 1.015 <=1.030 02/12 [facility] STOOL [facility] URINE AND UA Turbidity Marked Clear 02/12 [facility] STOOL *ABN* /2018 [facility] (02/12/19 5:55 AM) [place] URINE AND UA Protein Negative Negative 02/12 [facility] STOOL mg/dL mg/dL [facility] URINE AND UA Bili Negative Negative 02/12 [facility] STOOL *NA* /2018 [facility] (02/12/19 5:55 AM) [place] URINE AND UA Ketones Trace Negative 02/12 [facility] mg/dL mg/dL [facility] URINE AND UA Glucose Negative Negative 02/12 [facility] STOOL mg/dL mg/dL [facility] BLOOD BANK RBC product Product available 02/12 [facility] RESULTS (02/12/19 5:53 AM) [facility] BLOOD BANK FFP product Product available 02/12 [facility] RESULTS (02/12/19 5:53 AM) [facility] CHEM PANEL eGFR 89 01/26 Result [facility] Comment: The [facility] eGFR is Center calculated using the CKD-EPI formula. In most young, healthy individuals the eGFR will be >90 mL/min/1.73m2 . The eGFR declines with age. An eGFR of 60-89 may be normal in some populations, particularly the elderly, for whom the CKD-EPI formula has not been extensively validated. Use of the eGFR is not recommended in the following populations:< br/>
Amelia viduals with unstable creatinine concentration s, including patients and those with serious co-morbid conditions.<b r/>
Patie nts with extremes in muscle mass or diet.

The data above are obtained from the National Kidney Disease Education Program (NKDEP) which additionally recommends that when the eGFR is used in patients with extremes of body mass index for purposes of drug dosing, the eGFR should be multiplied by the estimated BMI. CHEM PANEL POC 0.7 0.5 - 1.4 01/26 [facility] Creatinine /2018 [facility] CHEM PANEL Creatinine 0.58 0.50 - 12/27 Lvl 1.40 /2018 [place] CHEM PANEL eGFR 96 12/27 Result Comment: The [place] eGFR is calculated using the CKD-EPI formula. In most young, healthy individuals the eGFR will be >90 mL/min/1.73m2 . The eGFR declines with age. An eGFR of 60-89 may be normal in some populations, particularly the elderly, for whom the CKD-EPI formula has not been extensively validated. Use of the eGFR is not recommended in the following populations:< br/>
Amelia viduals with unstable creatinine concentration s, including patients and those with serious co-morbid conditions.<b r/>
Patie nts with extremes in muscle mass or diet.

The data above are obtained from the National Kidney Disease Education Program (NKDEP) which additionally recommends that when the eGFR is used in patients with extremes of body mass index for purposes of drug dosing, the eGFR should be multiplied by the estimated BMI. CHEM PANEL Creatinine 0.52 0.50 - 12/26 Lvl 1.40 /2018 [place] CHEM PANEL eGFR 101 12/26 Result Comment: The [place] eGFR is calculated using the CKD-EPI formula. In most young, healthy individuals the eGFR will be >90 mL/min/1.73m2 . The eGFR declines with age. An eGFR of 60-89 may be normal in some populations, particularly the elderly, for whom the CKD-EPI formula has not been extensively validated. Use of the eGFR is not recommended in the following populations:< br/>
Amelia viduals with unstable creatinine concentration s, including patients and those with serious co-morbid conditions.<b r/>
Patie nts with extremes in muscle mass or diet.

The data above are obtained from the National Kidney Disease Education Program (NKDEP) which additionally recommends that when the eGFR is used in patients with extremes of body mass index for purposes of drug dosing, the eGFR should be multiplied by the estimated BMI. HEMATOLOGY Hgb 12.2 14.0 - 12/26 18.0 [place] Pathology Reports No Data Provided for This Section Diagnostic Reports Report Value Date Source Chest 1view DX EXAM: XR CHEST 1 VIEW 02/12/2019 [facility] edical DATE: 02/12/2019 5:53 CDT Center INDICATION: Heart failure - pre TAVR COMPARISON: None. TECHNIQUE: AP chest. FINDINGS: Prominent cardiomediastinal silhouette. The aorta is mildly ectatic with minimal atherosclerotic changes. No pleural effusions or pneumothorax. No acute osseous lesions. Surgical clips overlying the left upper abdominal quadrant. IMPRESSION: 1. Prominent cardiomediasti nal silhouette and ectasia of the thoracic aorta. No acute findings. 2. Subcentimeter pulmonary nodules are not well seen on today's chest radiograph. Please refer to prior CT 01/26/2019 for further evaluation. Heart/coronary art CARDIAC COMPUTED TOMOGRAPHY ANGIOGRAPHY 01/26 [facility] TAVR CTA DATE: 01/26/2019 Center INDICATION: Aortic stenosis. COMPARISON: none TECHNIQUE: After obtaining a preliminar y can labeler image, contrast imaging was performed on a Mydeo ROMERO, 320 detector rows - 640 slice, Matternet scanner. A dedicated, limited window, imaging protocol was used, with single breath hold, retrospective ECG gating, and automated arrhythmia rejection. A low osmolar contrast agent was used; 18 cc Omnipaque-350 IV contrast was delivered via a 18 gauge IV catheter, utilizing a power injector, at 5 cc/sec injection rate, and followed by 50 cc of normal saline bolus as a chaser. Collimated images were refor matted at 0.5 mm intervals, and sent to an offline independent workstation for interpretation, using: - 3D anatomic reconstruction s: curved multiplanar reconstructions (MPR), maximum intensity projections (MIP), and multi-planar imaging. - 4D cineangiography reconst ructions, for functional evaluation of cardiac valves and ventricular chambers. Effective radiation dose: 6.5 mSv. OVERALL STUDY QUALITY: Excellent. FINDINGS: Aortic valve: Trileaflet,wit h severe calcification,and asymmetric involvement primarily of the noncoronary cusp. Coronary Arteries: This patient has a right dom inant system with the origin of the coronary arteries being normal. Left main: Normal caliber ve ssel, which bifurcates into the LAD and LCX arteries, and also gives off a patent ramus intermedius branch. The vessel displays an ostial atheroma, calcified, not resulting i nto a flow-limiting stenosis . The remaining of the vessel is patent and free of atheroma.. LAD: Normal caliber vessel, which gives rise to two diagonal branches. The vessel and its branches are nearly free of atheroma and patent. LCx: Normal caliber, nondomi nant vessel, which gives rise to one obtuse marginal branch. The vessel and its branches are free of atheroma and patent. RCA: Normal caliber, dominan t vessel, which give rise to one right ventricular marginal branch, and bifurcates into the PDA and ABUNDIO branches. The vessel and its branches are free of atheroma and patent. Myocardium Appearance \\T\\ Fu nction: Left ventricle is normal in size, and systolic function, with moderate concentric hypertrophy. Ejection Fraction: >65% IMPRESSION: Aortic valve disease. Nonobstructive coronary artery disease. Chest/Abd/Pelvis EXAM: CTA CHEST 01/26/2019 [facility] TAVR CTA EXAM: CTA ABDOMEN AND PELVIS Kathy ter INDICATION: 78 years old Male with aortic stenos is TECHNIQUE: Following the adm inistration of intravenous contrast, 3 mm slices from the thoracic inlet through the pubic symphysis were obtained in arterial venous and precontrast phase. Images are reviewed on 3D workstation. COMPARISON: None FINDINGS: Vascular Measurements: Ascending aorta: 37 mm x 39 mm Aortic arch: 30 mm. Mid-descending thoracic aorta: 27 mm x 26 mm Aorta at diaphragm: 26 mm x 27 mm Aorta at celiac axis: 27 mm x 25 mm Aorta at superior mesenteric artery: 22 mm x 22 mm Mid-infrarenal aorta: 18 mm x 18 mm Right common iliac artery: 10 mm x 11 mm Right external iliac artery: 8 mm x 8 mm Right common femoral artery: 9 mm x 9 mm Left common iliac artery: 12 mm x [address] Left external iliac artery: 8.5 mm x [address] Left common femoral artery: 9 mm x 8.6 mm Calcific scores: Ascending aorta: 1 Aortic arch: 2 Descending thoracic aorta: 1 Aorta at diaphragm: 1 Suprarenal abdominal aorta: 1 Infrarenal abdominal aorta: 2 0 :none 1 :punctate calcifications 2 : <50% of vessel circumference is confluent ca lcification 3 : >50% of vessel circumference is confluent ca lcification Other vascular findings: Dense calcifications aortic valve otherwise minimal atherosclerotic calcifications No evidence of dissection. Ectasia of the ascending aorta. SMA SHERIF and celiac axis guajardo nt. There is some soft and hard plaque in the origin of the celiac axis but no significant narrowing. Written arteries are multiple as is typical of a horseshoe kidney. Cardiovascular: The pulmonar y arteries are well seen through the segmental level. No pulmonary emboli seen No cardiomegaly. No pericardial effusion. Lymph Nodes: No adenopathy by CT size criteria. Mediastinum: No significant abnormality. Lungs demonstrate minimal de pendent changes. Moderate2 centrilobular emphysematous changes in the lung apices. 0.9 cm nodule in the left upper lobe series 3 image 36. Right upper lobe groundglass nodule measuring 0.8 cm series 3 i mage 80. There is also a lesion series 3 image 129 which is a bulla and then some solid tissue near it. This is small but deserves follow-up in 3-6 months. It could be a scar cancer. Calcified granuloma in the right lower lobe. The liver, spleen, pancreas and adrenals are unremarkable. Horseshoe type kidney Evaluation of the stomach, s mall bowel, and colon are limited by lack of PO contrast. Minimal sigmoid diverticuli without evidence of diverticulitis. Osseous structures are remarkable for minimal multilevel degenerative disk disease Diastases recti IMPRESSION: 1. Refer to dedicated CT cardiac for cardiac fi ndings. 2. No pulmonary thromboemboli identified 3. Ectasia of the ascending aorta. 4. Mild centrilobular emphy sematous changes in the upper lobes. Subcentimeter pulmonary nodules in the left upper lobe and right upper lobe. Recommend 6-12 month follow-up. 5. Diverticulosis without evidence of diverticu litis. 6. Left common iliac/external iliac stent graft . I have reviewed these images and agree with the above findings. 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 12/27/2018 [facility] Comparison: Prior CT study dated 12/26/2018. TECHNIQUE: Sequential trans- axial images of the abdomen and pelvis were obtained with a multi-detector helical CT after iodinated contrast administration per CTA protocol. Coronal and sagittal reconstru ctions were obtained. 100 mL of visipaque contrast material was used for the exam. 3-D postprocessing reconstructions were obtained with MIP images. CT imaging performed at this location utilizes radiation dose optimization techniques which include one or more of the following: -Automated exposure control -Adjustment of the mA and/or kV according to pat ient size -Use of iterative reconstruction technique CT Radiation Dose DLP 1071.10 mGy-cm FINDINGS: CTA ABDOMEN: LUNG BASES: Centrilobular em physematous changes. Left basilar atelectasis/scarring. Mild cardiomegaly. ARTERIAL EVALUATION: The abdominal aorta shows at herosclerotic calcification. Mild focal ectasia of the infrarenal abdominal aorta measuring up to 2.1 cm in diameter. No aneurysmal dilation or dissection. Calcific plaque at the origi n of celiac artery causing moderate stenosis (40- 50%). Calcific plaque at the origin of superior mesenteric and inferior mesenteric artery without significant stenosis. The SMA and SHERIF bowel branches are grossly unrem arkable. 2 left renal arteries are pa tent. There is no CT evidence of renal artery stenosis. ABDOMINAL SOLID ORGANS: The arterial phase contrast-enhanced images of the liver, pancreas, adrenals are unremarkable. The extrahepatic bile duct appears unremarkable. Hyperdense sludge/tiny gallbladder calculi. Hypodense lesions within splenic parenchyma may represent cyst or hemangiomas. Horseshoe kidney. PERITONEUM AND RETROPERITONE UM: There is no retroperitoneal or abdominal lymphadenopathy. There is no abdominal ascites. STOMACH AND BOWEL: The nonco ntrast opacified stomach and loops of bowel in the abdomen are unremarkable. The lack of orally administered contrast material limits assessment. Moderate to large amount of colonic stool burden. Uncomplicated colonic dive rticulosis. OSSEOUS STRUCTURES: Multilev el degenerative changes. No acute osseous abnormality. CTA PELVIS: ARTERIAL EVALUATION: Extensive atherosclerotic di sease. Patent vascular stent within the left common iliac artery extending into the proximal external iliac artery. The right common iliac artery, bilateral internal and exte rnal iliac arteries appear p atent. 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 Eccentric atheromatous plaque within the right proxima l superficial femoral artery causing high-grade stenosis (70-80%). Eicl-dz-zsytihhy stenosis within bilateral common femoral artery. NONVASCULAR STRUCTURES: Ther e is no pelvic lymphadenopathy. There is no pelvic ascites. The bladder is unremarkable. Enlargement of the prostatic gland, measuring approximately 4.0 x 5.1 cm. Mild indura tion within the left groin which may be related to recent catheterization. BOWEL: Rectosigmoid colon is unremarkable. IMPRESSION: 1. Diffuse atherosclerotic d isease within the abdominal aorta. Mild focal ectasia of the infrarenal abdominal aorta. No aneurysmal dilation or dissection. Moderate stenosis at the origin of celiac artery (40-50%). 2. Extensive atherosclerotic disease within the pelvis. Patent left common iliac artery stent without significant stenosis. 8 mm size focal saccular aneurysm along the posterior margin of right common i liac artery. High-grade sten osis (70-80%) within right proximal superficial femoral artery. Mild to moderate stenosis of bilateral common femoral artery. 3. Hyperdense sludge/choleli thiasis. Probable splenic cyst or hemangiomas, the etiologies not entirely excluded. 4. Uncomplicated colonic diverticulosis. SL: SINDY Abdomen/Pelvis wo IV Patient Name: DEE DEE PAUL MERRILL 9 [facility] contrast CT : 1940; Age: 78 years Male MR: [id number] Study: Abdomen/Pelvis wo IV contrast CT 12/26/2018 10:08 CDT CLINICAL INDICATION: - common iliac dissection, ensure no bleeding COMPARISON: None TECHNIQUE: Multidetector CT imaging of the abdomen and pelvis WITHOUT IV contrast. Coronal and sagittal reconstructions were generated and reviewed. Oral contrast was administered. CT imaging performed at this location utilizes ra diation dose optimization techniques which include one or more of the following: -Automated exposure control -Adjustment of the mA and/or kV according to pat ient size -Use of iterative reconstruction technique Radiation dose: 782.57 mGycm FINDINGS: Lower thorax: Mild cardiomegaly. Trace pericardi al effusion. Hepatobiliary: No focal hepa tic lesion. Vicarious contrast excretion within the gallbladder. Pancreas: No focal mass or ductal dilatation. Spleen: No splenomegaly. Adrenals: No nodules. 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 Contrast noted within the bilateral renal collecting systems. Pelvic organs: Contrast opacifies the bladder. U nremarkable prostate. Peritoneum/Retroperitoneum: No free air or free fluid. Lymph nodes: No lymphadenopathy. Vessels: Vascular stent note d within the left common iliac artery that extends into the proximal left external iliac artery. Moderate aortoiliac atherosclerosis. Left femoral arterial catheter noted. GI: No significant bowel thi ckening or dilatation. Sigmoid diverticulosis. Large amount of stool within the colon. The appendix is not definitively visualized. Bones and soft tissues: Mode rate ventral hernia containing portion of the transverse colon and a small bowel loop. Degenerative changes of the lumbar spine. Bilateral hydroceles. No evidence of a groin hematoma. IMPRESSION: No evidence of a retroperitoneal or groin hemato ma. Horseshoe kidneys. Moderate ventral hernia cont aining portion of the transverse colon and a small bowel loop. No evidence of bowel obstruction. Sigmoid diverticulosis. SL: [id number] Consultation Notes No Data Provided for This Section Discharge Summaries No Data Provided for This Section History and Physicals No Data Provided for This Section Vital Signs Vital Sign Value Date Comments Source Systolic (mm Hg) 144 02/13/2019 [facility] Diastolic (mm Hg) 65 02/13/2019 [facility] Systolic (mm Hg) 140 02/13/2019 [facility] Diastolic (mm Hg) 62 02/13/2019 [facility] Systolic (mm Hg) 162 02/13/2019 [facility] Diastolic (mm Hg) 75 02/13/2019 [facility] Respitory Rate 18 02/13/2019 [facility] Respitory Rate 21 02/13/2019 [facility] Respitory Rate 20 02/13/2019 [facility] Temperature Oral (F) 97.4 F 02/13/2019 [facility] Temperature Oral (F) 97.8 F 02/13/2019 [facility] Temperature Oral (F) 97.4 F 02/13/2019 [facility] Height 177.8 cm 02/12/2019 [facility] BMI Calculated 24.59 02/12/2019 [facility] Weight 77.727 02/12/2019 [facility] Respitory Rate 16 01/26/2019 [facility] Heart Rate 86 01/26/2019 [facility] Systolic (mm Hg) 148 01/26/2019 [facility] Diastolic (mm Hg) 66 01/26/2019 [facility] Heart Rate 84 01/26/2019 [facility] Respitory Rate 16 01/26/2019 [facility] Systolic (mm Hg) 159 01/26/2019 [facility] Diastolic (mm Hg) 73 01/26/2019 [facility] BMI Calculated 23.76 01/26/2019 [facility] Weight 77.273 01/26/2019 [facility] Height 180.34 cm 01/26/2019 [facility] Respitory Rate 30 12/27/2018 [place] Systolic (mm Hg) 170 12/27/2018 [place] Diastolic (mm Hg) 90 12/27/2018 [place] Systolic (mm Hg) 154 12/27/2018 [place] Diastolic (mm Hg) 84 12/27/2018 [place] Respitory Rate 23 12/27/2018 [place] Respitory Rate 21 12/27/2018 [place] Temperature Oral (F) 97.4 F 12/27/2018 [place] Systolic (mm Hg) 152 12/27/2018 [place] Diastolic (mm Hg) 71 12/27/2018 [place] Temperature Oral (F) 97.9 F 12/27/2018 [place] Temperature Oral (F) 98 F 12/27/2018 [facility] [place] BMI Calculated 22.75 12/27/2018 [facility] Weight 74.001 12/27/2018 [facility] Height 180.34 cm 12/27/2018 [facility] Height 180.34 cm 12/26/2018 [facility] Weight 79.574 12/26/2018 [facility] BMI Calculated 24.47 12/26/2018 [facility] Encounters Location Location Encounter Encounter Reason Attending ADM DC Stat us Source Details Type Number For Provider Date Date Visit [facility] [id number] [place] 12/27 12/27 [facility] Carmencita /2018 [facility] [id number] [facility] [id number] Mauro 02/12 02/13 [facility] Procedures Procedure Code Date Perfomer Comments Source Arm repair [id number] [facility] Colon operation [id number] [facility] Assessment and Plan Assessment and Plan Date Source Extracted from:Title: [place] PCCM Consult H&P * 02/13/2019 [facility] Author: Felix Reinoso JIG BOX OPERATOR Date: 02/12/19 Basic Information Present at bedside: Medical personnel. Source of history: Self, Medical record. Referral source: Mauro De Leon MD. History limitation: None. Advance directive: None. History of Present Illness Mr. Wright is 78 years old man with severe , symptomatic aortic stenosis. The patient also had chronic diastolic heart failure, with NYHA class III-IV symptoms. Other comorbidities include: HFrEF, HTN, se [place] PAD, lymphoma s/p chemo in 2010, [place] PD and pulmonary nodules. He underwent an elective TAVR via right transfemoral approach. Post procedure the was failure of per closure device, therefore he was p laced under GETA and underwent RFA endar terectomy and patch repair. He received 2300 cc IVF and had an EBL of 200cc. He was extubated postprocedure and arrived to CCU in stable condition, [place] PCCM consultation was requested for postprocedure care. Review of Systems Constitutional: Negative. Eye: Negative. Ear/Nose/Mouth/Throat: Negative. Respiratory: Negative. Cardiovascular: Negative. Gastrointestinal: Negative. Genitourinary: Negative. Hematology/Lymphatics: Negative. Endocrine: Negative. Immunologic: Negative. Musculoskeletal: Negative. Integumentary: Negative. Neurologic: Negative. Psychiatric: Negative. All other systems are negative Health Status Allergies: Allergic Reactions (Selected) No Known Allergies, Allergies (1) Active Reaction No Known Allergies None Documented Current medications: (Selected) Inpatient Medications Ordered Exparel: 20 mL, InFILtration(local), ONCALL Sodium Chloride 0.9% (Bolus) IV: 250 mL, 250 ml/hr, IV, ONCA LL Sodium Chloride 0.9% (titrate) 250 mL: T o prime line and flush remaining blood products., IV, Stop: 03/14/19 5:52:00 CDT Sodium Chloride 0.9% IV 750 mL: 75 ml/hr, IV, Stop: 02/13/19 5:52:00 CDT acetaminophen: 1,000 mg, 100 mL, 400 ml/hr, IVPB, ONCE, PRN: Pain Score 1-3 ceFAZolin (SCIP) + sterile water 10 mL: 1 gm, 200 ml/hr, IVP B, Q8H docusate: 100 mg, 1 cap, PO, Q12H niCARdipine 40 mg in NS 200 mL (Titrate. ) IV 40 mg: Titrate, IV, Stop: 03/14/19 8:22:00 CDT ondansetron: 4 mg, 2 mL, IVP, Q8H, PRN: Nausea and Vomiting pantoprazole: 40 mg, 1 tab, PO, Before Dinner pneumococcal 13-valent vaccine: 0.5 mL, IM, ONCALL polyethylene glycol 3350: 17 gm, 1 pkt, PO, Daily Prescriptions Prescribed carvedilol 3.125 mg oral tablet: 3.125 mg, 1 tab, PO, Q12H, 60 tab, 3 Refill(s) clopidogrel 75 mg oral tablet: 75 mg, 1 tab, PO, Daily, 30 t ab, 6 Refill(s) Documented Medications Documented Chondroitin-Glucosamine: 500 mg, PO, Daily, 0 Refill(s) Vitamin C 500 mg oral tablet: 500 mg, 1 tab, PO, Daily, 0 Re fill(s) atorvastatin 10 mg oral tablet: 10 mg, 1 tab, PO, Daily, 0 R efill(s) calcium-vitamin D 150 mg-100 units oral tablet: 1 tab, PO, D aily, 0 Refill(s) levothyroxine 25 mcg (0.025 mg) oral tab let: 25 microgram, 1 tab, PO, Daily, 0 Refill(s) Histories Past Medical History: Active Thyroid disease (62581884) Resolved Lymphoma (541574853): Resolved. Family History: Father Brain tumor. Mother Colon cancer. Procedure history: Arm repair (857269926). Colon operation (384069030). Social History Social and Psychosocial Habits Alcohol 02/12/2019 Use: Current Type: Liquor Frequency: 1-2 times per month Previous treatment: None Has alcohol use interfered with work or home life? No Do you ever drink more than intended? No Has anyone been hurt or at risk by your drinking? No Substance Abuse 12/26/2018 Use: None Tobacco 02/12/2019 Use: Former smoker Type: Cigarettes Tobacco use per day: 20 Number of years: 30 Total pack years: 30 Stopped at age: 48 Years Previous treatment: None Exposure to Tobacco Smoke None Other Tobacco Frequency quit smoking 20yrs ago Cigarette Smoking Last 365 Days No Reg Smoking Cessation Counseling No. Physical Examination VS/Measurements Vital Signs (last 24 hrs) Last Charted _ Temp Oral 98.0 DegF (FEB 12 06:20) Heart Rate Apical 80 bpm (FEB 12 14:00) Resp Rate 20 BRMIN (FEB 12 14:00) SBP 130 mmHg (FEB 12 14:00) DBP 62 mmHg (FEB 12 14:00) SpO2 100 % (FEB 12:) Weight 77.727 kg (FEB 12 05:53) Height 177.8 cm (FEB 12 05:53) BMI 24.59 (FEB 12 05:53), Measurements from [facility] t : Measurements 02/12/2019 05:53 Heparin Dosing Weight (kg) 77.73 02/12/2019 05:53 Height 177.8 cm Height Collection Method Measured Weight 77.727 kg Dosing Weight Difference Percent 0.588 % Dosing Weight Collection Method Measured Body Surface Area 1.9593 m2 Body Mass Index 24.59 m2 General: Alert and oriented, No acute distress. Eye: Pupils are equal, round and reactive to light. HENT: Normocephalic. Neck: Supple. Respiratory: Respirations are non-labor ed, Breath sounds are equal, Symmetrical chest wall expansion, No chest wall tenderness. Cardiovascular: Normal rate, Regular rh ythm, Good pulses equal in all extremities, Normal peripheral perfusion, No edema. Gastrointestinal: Soft, Non-tender. Genitourinary: No costovertebral angle tenderness. Lymphatics: No lymphadenopathy neck, axilla, groin, hematur ia. Musculoskeletal Normal range of motion. Integumentary: Warm, Dry, Intact. Neurologic: Alert, Oriented, Normal sen lianet, Normal motor function, No focal deficits. Cognition and Speech: Speech clear and coherent. Psychiatric: Appropriate mood and affect. Review / Management Results review: Labs (Last four charted values) WBC 9.5 (FEB 12) 6.0 (FEB 12) Hgb L 10.8 (FEB 12) L 13.4 (FEB 12) Hct L 31.9 (FEB 12) L 39.5 (FEB 12) Plt L 95 (FEB 12) L 126 (FEB 12 ) Na 139 (FEB 12) 139 (FEB 12) K 3.8 (FEB 12) 4.3 (FEB 12) CO2 29 (FEB 12) 28 (FEB 12) Cl 106 (FEB 12) 103 (FEB 12) Cr 0.61 (FEB 12) 0.70 (FEB 12) BUN 12 (FEB 12) 14 (FEB 12) Glucose Random 97 (FEB 12) H 101 (JAN 20) Mg 1.8 (FEB 12) 2.1 (FEB 12) Ca L 8.3 (FEB 12) 9.0 (FEB 12) PT 14.7 (FEB 12) 12.9 (FEB 12) INR 1.17 (FEB 12) 0.99 (FEB 12) PTT 32.2 (FEB 12) 26.3 (FEB 12) . Impression and Plan s/p TAVR s/p RCFA Postoperative Care CHF htn COPD emphysema pulmonary nodules hematuria h/o lymphoma Neuro: non focal denies acute pain cont. to monitor. Cv: HD stable, cont. to monitor and f/u with cardiology POC. Pulm: Wean to room air, start VEP, consu lt PT/OT once bedrest complete. Resume bronchodilators, will need outpatient pulmonary f/u for COPD and monitoring of pulmonary nodules. Gi: cont. AHA diet and PPI. Gu: creatinine/lytes stable. Cont. FTG, monitor strict I&O, consult urology if hematuria worsens. Heme: post op H/H stable , VTE chemoprophylaxis per cardiolo gy recs. ID:[id number], wbc stable, received ancef per SCIP cont. to mo nitor. Endo:euglycemic. Lines, Tubes, and Drains: 02/12/2019 11:30 Arterial Lines: Non-Tunneled Radial artery Left 02/12/2019 11:30 Indwelling Urinary Cath eter: Urethral 16 Ukrainian Indwelling/Continuous. Necessary for strict I&O and hematuria 02/12/2019 05:55 Peripheral Lines: Forea rm Left 20 gauge Over the needle catheter Addendum by Ab Stephenson MD on 02/12/2019 21:18 PCCM attending note: I have seen and evaluated the pt with e team and I agree with the note by GEORGIE Reinoso dated 02/12/2019 Labs and imaging reviewed NAD Hemodynamics stable Wean to room air Monitor Hb Extracted from:Title: TAVR Procedure Note Author: Mauro De Leon MD Date: 02/12/19 TAVR PROCEDURE NOTE Date of Procedure: 02/12/2019 Corporate Financial Analyst and Supervising Physician: Mauro De Leon MD Co-Sod Cutter/Surgeon: Last Polk MD Holistic Pulser Operators: Wellington Lyons MD, Interventional Nursery Teacher Jacob Holman MD, CVS Fellow Referring Physician: Markus Tse MD Anesthesiologist: General Anesthesia Care provided by Layton Bobby MD Pre-operative diagnosis: Severe Symptomatic Aortic Stenosis Post-operative diagnosis: Degenerative c alcified aortic stenosis, Bioprosthetic Aortic Valve Replacement Procedures Performed: Micropuncture access of femoral artery and vein Temporary transvenous pacemaker insertion Aortic root angiography Embolic protection using Kasbeer device , via right radial artery, and later removal of the device Balloon aortic valvuloplasty with E Balloon 20 X 45 mm Transfemoral transcatheter aortic valve replacement (TAVR) using a 29 -mm Kim 3 Bioprosthetic Valve, with left heart catheterization, via right femoral open access Bilateral ileofemoral angiogram Perclose device deployment Angioseal Device deployment Open right femoral arterial access, femo ral artery endarterectomy, and patch repair Indication for Procedure: Mr. Wright is 78 years old man with severe, symptomatic aortic stenosis. The patient also had chronic diastolic heart failure, with NYHA class III-IV symptoms. Other comorbiditi es include: HFrEF, HTN, severe PAD, lymp joe s/p chemo in 2011, Ex smoker FEV1 54%, multiple pulmonary nodules. STS PROM score was 4. The patient was evaluated by CT surgery and deemed to be at elevated risk for SAVR. The case was discussed i n detail in multidisciplinary valve conference, and consensus was made to proceed with transfemoral TAVR using Kim 3 bioprostheitc valve. Description of Procedure: Following informed consent, the patient was brought to the cardiac catheterization laboratory and placed under general anesthesia by Dr. Bobby. A transesophageal echocardiographic probe was advanced into the mid-esophagus with baseline images and aortic valve gradients were obtained. A 4F micropuncture kit was used to acces s both femoral arteries and femoral vein with proper placement confirmed by fluoroscopy and limited femoral angiography. Right femoral artery and veins were exposed. Sheaths were placed as follows: * 6F Terumo sheaths were placed in bilateral femoral arterie s. * 7F long Terumo sheath (25 cm) was introduced in the right femoral vein. * 6F Terumo sheath was introduced in the right radial artery A 6F pigtail catheter was then advanced through the left 6F femoral artery sheath with baseline aortic root angiogram performed in the optimal views. This pigtail catheter was parked in the coronary cus p. A 5F balloon-tipped temporary transve nous pacemaker was advanced through the right femoral venous sheath and into the RV apex. Pacing thresholds were obtained and the pacemaker was placed in standby mode. At this time, the patient was then given heparin for a nticoagulation. After blunt groin dissection, a storq wi re was advanced in to the major femoral arterial access sheath. Two Proglide Perclose sutures were deployed using the "pre-close" technique. A Mara wir e was advanced through the second progli de device up the ascending aorta. The proglide device was removed, followed by placement of 16 F E sheath over this wire. Next, an AL-1 catheter was advanced over the Mara wire up the aor tic root, and this wire was exchanged out for a straight wire which was used to cross the stenotic aortic valve. The AL catheter was advanced in to the left ventr icle. The wire was removed and transaort ic valvular gradients were obtained and recorded. Next, a 0.035 x 260-cm Amplatz extra-stiff [place] wire was advanced into the LV cavity. The AL catheter was remove d. The 20 mm x 4.5 cm E balloon was the n advanced across the stenotic aortic valve over this wire. With rapid pacing at 180 beats per minute, the balloon aortic valvuloplasty was performed. Next, the v alvuloplasty balloon was taken out. The Kim 3 Commander valve delivery system was advanced over this wire, and positioned across the stenotic aortic valve. With rapid pacing at 180 beats per minute, the valve was deployed in the standard t echnique. We then advanced a 6F pigtail catheter into the left ventricle to measure post-valve deployment hemodynamics and then removed the catheter. Aortic root angiography was performed us ing the pigtail catheter, which revealed trivial paravalvular leak. This pigtail catheter was pulled down in to the distal descending aorta. The E s sara was then removed and the previousl y-placed Perclose sutures were deployed in the standard technique, but there was still bleeding. Dr. Polk then repaired the heaviliy calcified RFA - endarterecto my and patch repair, achieving excellent hemostasis and distal flow. Selective distal aortic and ilio-femoral angiography using the pigtail catheter revealed no evidence of dissection or flow limitation . The contralateral 6F arterial sheath w as then removed and an Angioseal device was deployed using the standard technique to achieve excellent hemostasis. The temporary transvenous pacemaker was removed , venous sheath/s were removed, and hemo stasis was achieved. All wounds were then closed and sterile dressings were applied. Estimated blood loss: ~ 200 cc Complications: None Total amount of contrast: 140 cc Visipaque contrast Total fluoroscopic time: 20 mins Hemodynamic Findings Baseline Hemodynamics: LV pressure: 183/11, LVEDP 19 mmHg Aortic pressure: 110/55, mean 75 mmHg AV gradient mean: 56 mmHg Aortic valve area: 0.9 cm2 Post-Intervention Hemodynamics: LV pressure: 146/11, LVEDP 22 mmHg Aortic pressure: 147/48, mean 78 mmHg AV gradient mean: 1 mmHg Aortic valve area: >4 cm2 Summary: Successful Transcatheter Aortic Valve Re placement (TAVR) via open femoral route with a 29-mm Kim 3 bioprosthesis. Recommendations: 1. Usual post-TAVR care per standard pro tocol, including intravenous hydration to prevent contrast induced nephropathy. 2. May start heparin DVT prophylaxis from tomorrow morning, SCDs for now. 3. Echocardiogram will be obtained on the next day. 4. Resume home medications. 5. Continue mic-procedural IV antibiotics prophylaxis. 6. Aspirin 81 mg daily indefintely, and clopidogrel 75 mg daily for now due to left iliac stents placed a month ago. 7. Cardiac rehabilitation after hospital discharge. The entire procedure was performed with and interpretation verified by Mauro De Leon MD. Mauro De Leon MD Staff Land Surveying Manager [facility] [place], [facility] Extracted from:Title: Clinical Document 12/27/2018 ANGUS Boles Author: Milo Tse MD Date: 12/27/18 Discharge Summary: Discharge Diagnoses: Severe Aortic stenosis LV dysfunction Iliac idssection Discharge Medications: See Medication Reconciliation Discharge Activity: As Tolerated Discharge Diet: Low fat, Heart Healthy Diet Discharge Follow-up: As Discussed with patient (PCP/SECVA in 1-2 weeks) HPI and Hospital Course: Patient underwent coronary angios and Le ft iliac stenting in preparation for TAVR 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 CT showed no RP bleed Repeat CT scan of abd and pelvis was don e and showed no dissection or other complication. Code 44 was done. Chnaged to obs. Meds faxed to [facility] Advised to take plavix daily. Will undergo TAVR at [facility] in near future with Haley Awan Plan of Care No Data Provided for This Section Social History Social History Date Source Social History TypeResponse 12/26/2018 [facility] Substance Abuse Use: None. Alcohol Current, Type Liquor. Frequency: 1-2 ti mes per month. Previous treatment: None. Alcohol use interferes with work or home: No. Drinks more than intended: No. Others hurt by drinking: No. Smoking Status Former smoker; Type: Cigarettes; Previou s treatment: None; Exposure to Tobacco Smoke None; Cigarette Smoking Last 365 Days No; Reg Smoking Cessation Counseling No; Tobacco use per day: 20; Number of yea rs: 30; Total pack years: 30; Stopped at age: 48; Other Tobacco Frequency quit smoking 20yrs ago; entered on: 02/12/19 Social History TypeResponse 12/26/2018 ANGUS Boles Substance Abuse Use: None. Alcohol Current, Type Liquor. Frequency: 1-2 ti mes per month. Previous treatment: None. Alcohol use interferes with work or home: No. Drinks more than intended: No. Others hurt by drinking: No. Smoking Status Former smoker; Type: Cigarettes; Previou s treatment: None; Exposure to Tobacco Smoke None; Cigarette Smoking Last 365 Days No; Reg Smoking Cessation Counseling No; Tobacco use per day: 20; Number of yea rs: 30; Total pack years: 30; Stopped at age: 48; entered on: 12/26/18 Family History No Data Provided for This Section Advance Directives No Data Provided for This Section Functional Status No Data Provided for This Section
--- OUTSIDE RECORDS SUMMARY | 2020-02-03 13:45 | XMS REPORT | Continuity of Care Document ---
:1940 Author Organization [facility] t Address [address] [place] [address] Care Team Providers Name Role Phone DHOBLE Attending Clinician Unavailable IRA Attending Clinician Unavailable Haley Attending Clinician PROCEDURES Attending Clinician Unavailable GENIE Attending Clinician Unavailable Chelsey Attending Clinician Unavailable Julio Tse Attending Clinician Haley Admitting Clinician Julio Tse Admitting Clinician Problems Condition Condition Condition Status Onset Resolution Last Treating Co mments Source Name Details Category Date Date Treatment Clinician Date PREADMIT / Diagnosis Active 2019-02-16 Memoria TAVR / GA 6-10 10:19:00 l / RIDDHI PREADMIT 00:00: Ankush josé WITH / TAVR / 00 DEMORA GA / RIDDHI WITH DEMORA Active 02/02/[address] [facility] AORTIC Diagnosis Active 2019-01-26 Mem oria STENOSIS 5-21 14:33:00 l AORTIC 00:00: [place] STENOSIS 00 Active 01/13/[address] 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 [place] [facility] ans History of History of Problem Resolve Univers Iliac [place]liac [place] of dissection dissection [place] History of History of Problem Resolve Univers lymphoma lymphoma d ity of [place] [facility] ans History of History of Problem Resolve Univers peripheral peripheral d it y of arterial arterial [place] disease disease Physici ans History of History of Problem Resolve Univers thyroid thyroid d ity of disease disease [place] [facility] ans S/P TAVR S/P TAVR Problem Active Unive rs (transcath (transcath it y of eter eter [place] aortic aortic Physici valve valve ans replacemen replacemen t) t) Heart Heart Problem Active Univers failure failure ity of with with [place]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 [place] Disease of Problem Active 2019-02-15 M emoria thyroid 21:52:14 l gland Disease [place] (disorder) of thyroid gland (disorder) Active Problem 02/15/2019 [facility] [place] DISSECTION Diagnosis Active 2019-01-21 Memoria OF ILIAC 09:28:00 l ARTERY [place] DISSECTION OF ILIAC ARTERY Active [facility] NONRHEUMAT Diagnosis Active 2019-01-26 Memoria IC AORTIC 14:33:00 l (VALVE) [place] STENOSIS NONRHEUMAT IC AORTIC (VALVE) STENOSIS Active [facility] Allergies, Adverse Reactions, Alerts This patient has no known allergies or adverse reactions. Family History Family Member Diagnosis Comments Start Date Stop Date Source Mother Family history of [facility] [place] malignant neoplasm Physic ians Father Family history of [facility] [place] malignant neoplasm Physic ians Sister Family history of [facility] [place] cardiac disorder Physicia ns Social History Social Habit Start Date Stop Date Quantity Comments Source Social History 2018-12-26 2018-12-26 [facility] anabella 12:26:46 12:26:46 Smoking Status Start Date Stop Date Source Former smoker [facility] Medications Ordered Filled Start Stop Current Ordering Indication Dosage Frequency Signature Comments Components Source Medication Medication Date Date Medication? Clinician (SIG) Name Name clopidogrel 2019 Yes 75 mg = 1 M emoria 75 mg oral 6-21 tab, PO, l tablet 16:29: Daily, # [place] 23 30 tab, 6 Refill(s) carvedilol Yes 3.125 mg = M emoria 3.125 mg 6-21 1 tab, PO, l oral tablet 16:29: Q12H, # 60 [place] 18 tab, 3 Refill(s) lisinopril Yes 5 mg = 1 Mem oria 5 mg oral 6-21 tab, PO, l tablet 16:29: Daily, # [place] 00 30 tab, 1 Refill(s) Aspirin 81 Yes 81 mg = 1 Me moria MG Enteric 6-21 tab, PO, l Coated 16:29: Daily, # [place] Tablet 00 30 tab, 1 Refill(s) levothyroxi Yes 25 Memori a ne 25 mcg 6-21 microgram l (0.025 mg) 16:29: = 1 tab, [place] oral tablet 00 PO, Daily, # 30 tab, 1 Refill(s) atorvastati Yes 10 mg = 1 M emoria n 10 mg 6-21 tab, PO, l oral tablet 16:29: Daily, # He rmann 00 30 tab, 1 Refill(s) heparin No Notes: Memoria 6-21 porcine l 14:00: heparin Chondroitin No Route: PO, Memoria Sulfates 6-21 Dosing l 400 MG / 14:00: Weight Glucosamine 77.727, hydrochlori kg, Daily, de 500 MG Start Oral Tablet date: 02/13/19 9:00:00 CDT, Duration: 30 day, Stop date: 03/14/19 9:00:00 CDT clopidogrel No Notes: Lane maría 6-21 (Same As: l 14:00: Plavix) Calcitrate No Notes: Memor ia with D 6-21 (Same As: l 14:00: OsCal-D 250) Vitamin C No Notes: Memori a 6-21 (Same as: l 14:00: Vitamin C) Aspirin No Notes: Do Memor ia 6-21 not crush l 14:00: or chew. (Same As: Ecotrin) Thyroxine No Notes: Memori a 6-21 Take 1 l 11:30: hour before or 2 hours after meal; Enteral feeds may interefere with the absorption of this medication . (Same as:Levothr oid) Lisinopril No Notes: Memor ia 6-21 (Same as: l 11:26: Prinivil, [place] 00 Zestril) sodium No Notes: Memoria phosphate 6-21 Infuse l 10:10: over 4 [place] 00 hour. Do not infuse phosphorou s concurrent ly in the same line as TPN or IVF that contains calcium. For double lumen central lines, phosphorou s may be infused in a separate lumen from TPN. Potassium No Notes: Memori a Chloride 6-21 (Same as: l 10:10: Potassium Chloride) potassium No Notes: Memori a phosphate 6-21 (Same as: l 10:10: K Phosphate. ) Do not infuse phosphorou s concurrent ly in the same line as TPN or IVF that contains calcium. For double lumen central lines, phosphorou s may be infused in a separate lumen from TPN. 1 mMol phoshate has 1.47 mEq potassium Infuse over 4 hours Calcium No Notes: Memoria Gluconate - WASTE: F/P l 10:10: - Sink; E [place] - [employer] Trash Bin Magnesium No Notes: Memori a Oxide - (Same as: l 10:10: Mag-Ox [place] 00 400) Magnesium oxide [id number] g elemental magnesium Dose=____m g magnesium oxide (___mg elemental magnesium) Calcium No Notes: Memoria Carbonate - (Same As: l 500 MG 10:10: Tums) [place] Chewable 00 Calcium Tablet Carbonate 500 mg = 200 mg elemental calcium Dose = mg calcium carbonate ( mg elemental calcium) Magnesium No Notes: Memori a Sulfate - WASTE: F/P l 10:10: - Sink; E [place] - [facility] Trash Bin potassium No Notes: Memori a phosphate-s -21 (Same as: l odium 10:10: Phos-NaK) [place] phosphate 00 Each 1.5 250 mg-280 gm pkt has mg-160 mg 250mg oral powder phosphorou for s. Mix reconstitut w/2.5oz ion water and stir. carvedilol No Notes: Memor ia 6-21 Give with l 02:00: food. (Same As: Coreg) atorvastati No Notes: Lane maría n 6-21 (Same As: l 02:00: Lipitor) Nicardipine No Notes: Lane maría 6-20 Same as: l 22:33: Cardene Concentrat ion: (0.2 mg /1 ml ) pantoprazol No Notes: Lane maría e 6-20 Tablet l 21:30: should not be chewed or crushed. (Same as: Protonix) carvedilol No Notes: Memor ia 6-20 Give with l 21:08: food. (Same As: Coreg) Cefazolin No Notes: Memori a 6-20 (Same As: l 21:00: Ancef, Kefzol) MEDICATION WASTE Product Size: 1000 mg Product Wasted: ___ mg glycopyrrol No Route: IV, Memoria ate (ANES) - Drug form: l 16:35: INJ, ONCE, Stop date: 02/12/19 11:35:00 CDT neostigmine No Route: IV, Memoria (ANES) 6-20 Drug form: l 16:35: INJ, ONCE, Stop date: 02/12/19 11:35:00 CDT Naloxone No Notes: Memoria 6-20 Same as l 16:20: Narcan Flumazenil No Notes: Memor ia 6-20 (Same as: l 16:20: Romazicon) Ondansetron No Notes: Lane maría 6-20 (Same as: l 16:20: Zofran) MEDICATION WASTE Product Size: 4 mg Product Wasted: ___ mg Hydralazine No Notes: Lane maría 6-20 (Same as: l 16:20: Apresoline ) Push over 5 minutes Oxycodone No Notes: Memori a 6-20 (Same as: l 16:20: 'Roxicodon e) Ibuprofen No Notes: Memori a 6-20 (Same as: l 16:20: Motrin) "Do Not Crush" Take with food. protamine No Route: IV, Me moria (ANES) 10 6-20 Drug form: l mg 15:52: INJ, Start [place] 00 date: 02/12/19 10:52:00 CDT, Stop date: 02/12/19 11:52:00 CDT calcium No Route: IV, Lane maría chloride 6-20 Drug form: l (ANES) 15:41: INJ, ONCE, Giovanna nn Stop date: 02/12/19 10:41:00 CDT ondansetron No Route: IV, Memoria (ANES) 6-20 Drug form: l 15:41: INJ, ONCE, [place] 00 Stop date: 02/12/19 10:41:00 CDT acetaminoph No Route: IV, Memoria en (ANES) 6-20 Drug form: l 10 mg 15:09: INJ, Start Ankush n date: 02/12/19 10:09:00 CDT, Stop date: 02/12/19 11:09:00 CDT heparin No Route: IV, Lane maría (ANES) 6-20 Drug form: l 14:55: INJ, ONCE, Stop date: 02/12/19 9:55:00 CDT EPINEPHrine No Route: IV, Memoria (ANES) 6-20 Drug form: l 14:50: INJ, ONCE, [place] 00 Stop date: 02/12/19 9:50:00 CDT norepinephr No Route: IV, Memoria ine (ANES) 6-20 Drug form: l 14:30: INJ, ONCE, Stop date: 02/12/19 9:30:00 CDT vasopressin No Route: IV, Memoria (ANES) 6-20 Drug form: l 14:24: INJ, ONCE, Stop date: 02/12/19 9:24:00 CDT lidocaine No Route: IV, Me moria (ANES) 6-20 Drug form: l 14:19: INJ, ONCE, Stop date: 02/12/19 9:19:00 CDT propofol 2019 No Route: IV, Mem oria (ANES) 6-20 Drug form: l 14:14: INJ, ONCE, [place] 00 Stop date: 02/12/19 9:14:00 CDT rocuronium No Route: IV, M emoria (ANES) 6-20 Drug form: l 14:14: INJ, ONCE, Stop date: 02/12/19 9:14:00 CDT fentaNYL No Route: IV, Mem oria (ANES) 6-20 Drug form: l 14:14: INJ, ONCE, Stop date: 02/12/19 9:14:00 CDT ceFAZolin No Route: IV, Me moria (ANES) 6-20 Drug form: l 14:09: INJ, ONCE, Stop date: 02/12/19 9:09:00 CDT Docusate No Notes: Memoria 6-20 (Same as: l 14:00: Colace) (Do Not Crush) POLYETHYLEN No Notes: Lane maría E GLYCOL 6-20 Dissolve l 3350 14:00: in 8 oz of water or juice. (Same as: Miralax) Sodium No Route: IV, Memor ia Chloride 6-20 Total l 0.9% IV 13:25: Volume: [place] (ANES) 1000 00 1,000, mL Start date: 02/12/19 8:25:00 CDT, Stop date: 02/12/19 9:25:00 CDT Ondansetron No Notes: Lane maría 6-20 (Same as: l 13:23: Zofran) MEDICATION WASTE Product Size: 4 mg Product Wasted: ___ mg Acetaminoph No Notes: Lnae maría en 6-20 Infuse l 13:23: over 15 [place] 00 minutes Do not exceed 4gm/day of acetaminop hen MEDICATION WASTE Product Size: 1000 mg Product Wasted: ___ mg Nicardipine No Notes: Lane maría 6-20 Same as: l 13:23: Cardene [place] 00 Concentrat ion: (0.2 mg /1 ml ) atorvastati No 10 mg = 1 M paul n 10 mg 6-20 tab, PO, l oral tablet 12:12: Daily, 0 He rm 00 Refill(s) Exparel No Notes: Memoria 6-20 (Same as: l 11:00: Exparel) [place] NOT FOR IV use Postoperat emi analgesia: Infiltrati on (local): Dose is based on surgical site and volume required to cover the area (in general, the maximum total dose is 266 mg). Bunionecto my: 7 mL into the tissues surroundin g the osteotomy and 1 mL into the subcutaneo us tissue of the surgical site (total dose = 8 mL [106 mg]) Hemorrhoid ectomy: 30 mL (20 mL vial diluted with 10 mL NS) divided and administer ed as 6 injections of 5 mL each (total dose = 30 mL [266 mg]) Interscale ne brachial plexus nerve block: Single dose: Total shoulder arthroplas ty or rotator cuff repair: 133 mg (10 mL) Sodium 2019-0 No 250 mL, Memoria Chloride 6-20 250 ml/hr, l 0.9% 11:00: Infuse [place] (Bolus) IV 00 Over: 1 hr, Route: IV, 250, Drug form: INJ, ONCALL, Priority: Routine, Dosing Weight 77.273 kg, Start date: 02/12/19 6:00:00 CDT, Duration: 1 doses or times Sodium 2019-0 No 750 mL, Memoria Chloride 6-20 Rate: 75 l 0.9% IV 750 10:53: ml/hr, Herm bernard mL 00 Infuse over: 10 hr, Route: IV, Dosing Weight 77.273 kg, Total Volume: 750, Start date: 02/12/19 5:53:00 CDT, Duration: 24 hr, Stop date: 02/13/19 5:52:00 CDT, 1.98, m2 Sodium 2019-0 No 250 mL, Memoria Chloride 6-20 Rate: To l 0.9% 10:53: prime line [place] (titrate) 00 and flush 250 mL remaining blood products., Dosing Weight 77.273, kg, Route: IV, Total Volume: 250, Start Date: 02/12/19 5:53:00 CDT, Duration: 30 day, Stop date: 03/14/19 5:52:00 CDT, Replace Every: 24 hr simvastatin Yes 10 mg = 1 M emoria 10 mg oral 5-04 tab, PO, l tablet 15:11: Bedtime, # Giovanna nn 00 30 tab, 3 Refill(s) clopidogrel Yes 75 mg = 1 M emoria 75 mg oral 5-04 tab, PO, l tablet 15:11: Daily, # [place] 00 30 tab, 6 Refill(s) carvedilol Yes 3.125 mg = M emoria 3.125 mg 5-04 1 tab, PO, l oral tablet 15:11: Q12H, # 60 [place] 00 tab, 3 Refill(s) Calcitrate No Notes: Memor ia with D 5-04 (Same As: l 14:00: OsCal-D [place] 00 250) Vitamin C No Notes: Memori a 5-04 (Same as: l 14:00: Vitamin C) clopidogrel No Notes: Lane maría 5-04 (Same As: l 14:00: Plavix) Aspirin 81 No Notes: Memor ia MG Chewable 5-04 Take with l Tablet 14:00: food. [place] 00 Thyroxine No Notes: Memori a 5-04 Take 1 l 14:00: hour [place] 00 before or 2 hours after meal; Enteral feeds may interefere with the absorption of this medication . (Same as:Levothr oid) simvastatin No 10 mg = 1 M emoria 10 mg oral 5-04 tab, PO, l tablet 12:46: Bedtime, # Giovanna nn 00 90 tab, 2 Refill(s), called to pharmacy clopidogrel No 75 mg = 1 M emoria 75 mg oral 5-04 tab, PO, l tablet 12:46: Daily, # [place] 00 90 tab, 2 Refill(s), called to pharmacy carvedilol No 3.125 mg = M emoria 3.125 mg - 1 tab, PO, l oral tablet 12:46: Q12H, # Her [place] 00 180 tab, 0 Refill(s), called to pharmacy Streptococc No Notes: Lane maría us 12-27 Shake well l pneumoniae 04:14: prior to Her [place] serotype 1 44 use (Same capsular as: antigen Prevnar diphtheria 13) [id number] protein conjugate vaccine / Streptococc us pneumoniae serotype 14 capsular antigen diphtheria [id number] protein conjugate vaccine / Streptococc us pneumoniae serotype 18C capsular antigen d Simvastatin No Notes: Lane maría 12-27 (Same as: l 02:00: Zocor) [place] Coreg No Notes: Memoria - Give with l 02:00: food. [place] 00 (Same As: Coreg) Nitroglycer No Notes: Lane maría in 12-26 (Same l 15:04: as:Nitroqu ick, Nitrostat) "Do Not Crush" Sublingual tablet Acetaminoph No Notes: Lane maría en 325 MG / 12-26 (Same as: l Hydrocodone 15:01: [place] Giovanna nn Bitartrate 00 325/5) Do 5 MG Oral not exceed Tablet 4gm/day of [[place] acetaminop 5/325] hen. Vitamin C Yes 500 mg = 1 Me moria 500 mg oral -03 tab, PO, l tablet 12:04: Daily, 0 Refill(s) Chondroitin Yes 500 mg =, M emoria -Glucosamin 5-03 PO, Daily, l e 12:03: 0 [place] 00 Refill(s) calcium-vit Yes 1 tab, PO, Memoria bear D 150 5-03 Daily, 0 l mg-100 12:00: Refill(s) Ankush n units oral 00 tablet levothyroxi Yes 25 Memori a ne 25 mcg 5-03 microgram l (0.025 mg) 11:59: = 1 tab, Her [place] oral tablet 00 PO, Daily, 0 Refill(s) Clopidogrel Clopidogrel Yes 1 QD TAKE 1 Univers Bisulfate Bisulfate TABLET ity of 75 MG Oral 75 MG Oral DAILY. [place] Tablet Tablet Physici ans Carvedilol Carvedilol Yes Q0.5D TAKE 1 Univers 12.5 MG 12.5 MG TABLET ity of Oral Tablet Oral Tablet TWICE [place] DAILY. Physici ans Atorvastati Atorvastati Yes 1 Q0.5D TAKE 1 Univers n Calcium n Calcium TABLET ity of 10 MG Oral 10 MG Oral TWICE [place] Tablet Tablet DAILY Physici ans Levothyroxi Levothyroxi Yes 1 QD TAKE 1 Univers ne Sodium ne Sodium TABLET ity of 25 MCG Oral 25 MCG Oral DAILY. [place] Tablet Tablet Physici ans Vital Signs Vital Name Observation Time Observation Value Comments Source BP Systolic 2019-03-27 155 mm[Hg] Location: [facility] 14:42:00 Position: [place] [facility] s Sitting BP Diastolic 2019-03-27 71 mm[Hg] Location: [place] [address]:42:00 Position: [place] [facility] Sitting Height 2019-03-27 71 [in_us] [facility] 14:42:00 [place] [facility] s Weight 2019-03-27 170 [lb_av] [facility] 14:42:00 [place] [facility] Body Mass Index 2019-03-27 23.71 kg/m2 University o f Calculated 14:42:00 [place] [facility] Heart Rate 2019-03-27 68 /min Location: [facility] 14:42:00 Radial; [place] [facility] O2 SAT 2019-03-27 93 % Source: [facility] 14:42:00 [place] [facility] Systolic (mm Hg) 2019-02-13 [facility] rmann 19:00:00 Diastolic (mm Hg) 2019-02-13 [facility] ermann 19:00:00 Systolic (mm Hg) 2019-02-13 [facility] rmann 18:00:00 Diastolic (mm Hg) 2019-02-13 [facility] ermann 18:00:00 Systolic (mm Hg) 2019-02-13 [facility] rmann 17:00:00 Diastolic (mm Hg) 2019-02-13 [facility] ermann 17:00:00 Respitory Rate 2019-02-13 [facility] 17:00:00 Respitory Rate 2019-02-13 [facility] 16:00:00 Respitory Rate 2019-02-13 [facility] 15:00:00 Temperature Oral 2019-02-13 97.4 F [facility] rmann (F) 09:00:00 Temperature Oral 2019-02-13 97.8 F [facility] rmann (F) 04:00:00 Temperature Oral 2019-02-13 97.4 F Aníbal Goodson rmann (F) 02:00:00 Height 2019-02-12 177.8 cm Aníbal Garzaan n 10:53:00 BMI Calculated 2019-02-12 [facility] 10:53:00 Weight 2019-02-12 Aníbal Garzaan n 10:53:00 BP Systolic 2019-01-30 129 mm[Hg] Location: [facility] 13:09:00 Position: [place] [facility] Sitting BP Diastolic 2019-01-30 71 mm[Hg] Location: [facility] 13:09:00 Position: [place] [facility] Sitting Height 2019-01-30 71 [in_us] [facility] 13:09:00 [place] [facility] Body Mass Index 2019-01-30 23.88 kg/m2 University o f Calculated 13:09:00 [place] [facility] Weight 2019-01-30 171.25 [lb_av] [facility] 13:09:00 [place] [facility] Heart Rate 2019-01-30 80 /min Location: [facility] 13:09:00 Brachial [place] [facility] Artery; Respiration Rate 2019-01-30 16 /min Quality: Normal Universi of 13:09:00 [place] [facility] O2 SAT 2019-01-30 95 % Source: [facility] 13:09:00 [place] Phys[facility] s BP Systolic 2019-01-30 123 mm[Hg] University of 12:36:00 [place] [facility] s BP Diastolic 2019-01-30 85 mm[Hg] University 12:36:00 [place] [facility] Height 2019-01-30 71 [in_us] University of 12:36:00 [place] [facility] Weight 2019-01-30 180 [lb_av] University 12:36:00 [place] [facility] Body Mass Index 2019-01-30 25.11 kg/m2 University o f Calculated 12:36:00 [place] [facility] Heart Rate 2019-01-30 99 /min University 12:36:00 [place] [facility] O2 SAT 2019-01-30 99 % University 12:36:00 [place] [facility] Respitory Rate 2019-01-26 [facility] 19:05:00 Heart Rate 2019-01-26 Aníbal Garzaan n 19:05:00 Systolic (mm Hg) 2019-01-26 Aníbal Goodson rmann 19:05:00 Diastolic (mm Hg) 2019-01-26 [facility] 19:05:00 Heart Rate 2019-01-26 [facility] Ankush n 17:58:00 Respitory Rate 2019-01-26 [facility] 17:58:00 Systolic (mm Hg) 2019-01-26 [facility] Hamzah rmann 17:58:00 Diastolic (mm Hg) 2019-01-26 [facility] 17:58:00 BMI Calculated 2019-01-26 [facility] 17:56:00 Weight 2019-01-26 Aníbal Garzaan n 17:56:00 Height 2019-01-26 180.34 cm [facility] Ankush n 17:56:00 BP Systolic 2019-01-26 133 mm[Hg] University of 14:30:00 [place] [facility] BP Diastolic 2019-01-26 74 mm[Hg] University of 14:30:00 [place] [facility] Height 2019-01-26 71 [in_us] University of 14:30:00 [place] [facility] Weight 2019-01-26 169 [lb_av] University of 14:30:00 [place] [facility] Body Mass Index 2019-01-26 23.57 kg/m2 University o f Calculated 14:30:00 [place] [facility] Temperature 2019-01-26 97.3 [degF] University of 14:30:00 [place] [facility] Heart Rate 2019-01-26 78 /min University of 14:30:00 [place] [facility] O2 SAT 2019-01-26 95 % University of 14:30:00 [place] [facility] BP Systolic 2019-01-09 146 mm[Hg] Location: [facility] 15:27:00 Position: [place] Physician s Sitting BP Diastolic 2019-01-09 70 mm[Hg] Location: [facility] 15:27:00 Position: [place] Physician s Sitting Height 2019-01-09 71 [in_us] University of 15:27:00 [place] [facility] Weight 2019-01-09 172.375 [lb_av] University o f 15:27:00 [place] [facility] Body Mass Index 2019-01-09 24.04 kg/m2 University o f Calculated 15:27:00 [place] [facility] Heart Rate 2019-01-09 80 /min Location: [facility] 15:27:00 Brachial [place] [facility] s Artery; Respiration Rate 2019-01-09 16 /min Quality: Normal Universi of 15:27:00 [place] [facility] O2 SAT 2019-01-09 96 % Source: [facility] 15:27:00 [place] [facility] Respitory Rate 2018-12-27 [facility] 15:00:00 Systolic (mm Hg) 2018-12-27 [facility] 15:00:00 Diastolic (mm Hg) 2018-12-27 [facility] 15:00:00 Systolic (mm Hg) 2018-12-27 [facility] 14:26:00 Diastolic (mm Hg) 2018-12-27 [facility] 14:26:00 Respitory Rate 2018-12-27 [facility] 14:26:00 Respitory Rate 2018-12-27 [facility] 13:00:00 Temperature Oral 2018-12-27 97.4 F [facility] (F) 13:00:00 Systolic (mm Hg) 2018-12-27 [facility] 13:00:00 Diastolic (mm Hg) 2018-12-27 [facility] 13:00:00 Temperature Oral 2018-12-27 97.9 F [facility] (F) 09:00:00 Temperature Oral 2018-12-27 98 F [facility] (F) 05:00:00 BMI Calculated 2018-12-27 [facility] 00:00:00 Weight 2018-12-27 [facility] Ankush n 00:00:00 Height 2018-12-27 180.34 cm [facility] Ankush n 00:00:00 Height 2018-12-26 180.34 cm [facility] Ankush n 12:00:00 Weight 2018-12-26 [facility] Ankush n 12:00:00 BMI Calculated 2018-12-26 [facility] 12:00:00 Procedures Procedure Date / Time Performed Performing Clinician [facility] e [N] 2D Echo complete, 2019-03-27 00:00:00 [facility] with Doppler [id number] Physicians [N] 2D Echo complete, 2019-02-13 00:00:00 [facility] with Doppler [id number] Physicians Complete PFTs w/DLCO 2019-01-12 00:00:00 [facility] and Lung Volumes Physicians CTA Chest/Abd/Pelvis 2019-01-12 00:00:00 [facility] TAVR [id number] Physicians CTA Heart/Coronary art 2019-01-12 00:00:00 [facility] TAVR [id number] Physicians History of Reported Hx [facility] Intestinal Polyp Physicians Removal Arm repair [facility] Colon operation [facility] Plan of Care Planned Activity Planned Date Details Comments Source Future Scheduled Test 2020-03-25 [N] 2D Echo [facility] 00:00:00 complete, with Physicians Doppler [id number] [code = [N] 2D Echo complete, with Doppler 55065] Future Scheduled Test 2020-03-25 [N] 2D Echo [facility] 00:00:00 complete, with Physicians Doppler [id number] [code = [N] 2D Echo complete, with Doppler 16810] Diagnostic Test 2019-02-13 [N] 2D Echo [facility] Pending 00:00:00 complete, with Physicians Doppler [id number] [code = [N] 2D Echo complete, with Doppler 29733] Diagnostic Test 2019-02-13 [N] 2D Echo [facility] Pending 00:00:00 complete, with Physicians Doppler [id number] [code = [N] 2D Echo complete, with Doppler 59520] Diagnostic Test 2019-01-12 Complete PFTs [facility] Pending 00:00:00 w/DLCO and Lung Physicians Volumes [code = Complete PFTs w/DLCO and Lung Volumes] Diagnostic Test 2019-01-12 CTA [facility] Pending 00:00:00 Chest/Abd/Pelvis Physicians TAVR [id number] [code = 50489-97] Diagnostic Test 2019-01-12 CTA Heart/Coronary [facility] Pending 00:00:00 art TAVR [id number] Physicians [code = 88604-70] Future Appointment 2020-03-25 Delia SELF [facility] 14:00:00 Carla CALDERON Future Appointment 2020-03-25 AGUSTIN ROTH [facility] 13:00:00 Physicians Encounters Start End Encounter Admission Attending Care Care Encounter Source Date/Time Date/Time Type Type Clinicians Facility Department ID 2019-02-12 Inpatient [id number] 05:31:00 2019-03-27 2019-03-27 PARMJIT Hernández [facility] [id number] [facility] 14:40:00 14:40:00 tMAURO VENEGAS lty - i ty of Delia SELF [place] Tim Lin Physici ans 2019-03-27 2019-03-27 Anupama ROTH [facility] Non-Invasiv [id number] [facility] 13:00:00 13:00:00 t; AGUSTIN ROTH e [place]acey [place] [facility] 2019-02-12 2019-02-13 Outpatient Haley [facility] [id number] 05:31:00 15:20:00 Mauro 2019-02-12 2019-02-12 Appointkorin PROCEDURES [facility] UTP [id number] Univers 11:00:00 11:00:00 t; CARDIO ity of PROCEDURES [place] , CARDIO Physici ans 2019-01-30 2019-01-30 Appointmen HALEY [facility] Multispecia [id number] Univers 13:40:00 13:40:00 t; MAURO ACLDERON lty - i ty of [place] SELF [place] M.D. Physici ans 2019-01-30 2019-01-30 Appointmen PARMJIT PRESCOTT [facility] [id number] Univers 11:00:00 11:00:00 t; JENNIFER PRESCOTT M.D. cic & autumn hogan JENNIFERMateo MEZA M.D. Surgery - Physic i [facility] 2019-01-26 2019-01-26 [facility] [id number] 12:51:00 23:59:00 Mauro 2019-01-26 2019-01-26 AppointPARMJIT Shearer [facility] [id number] Univers 14:45:00 14:45:00 t; tong De Jesus & autumn Barbosa M.D. Vascular [place] Neal Surgery - Physi Delia [facility] 2019-01-26 2019-01-26 Outpatient [facility] CAR 7501 [facility] 12:51:00 12:51:00 2019-01-09 2019-01-09 Appointkorin CALDERON [facility] [id number] Univers 15:00:00 15:00:00 t; MAURO CALDERON Multi i ty of Delia SELF [facility] Eliceo collier M.D. Physici ans 2018-12-27 2018-12-27 Outpatient HANK Tse [facility] [id number] 07:50:00 10:20:00 Milo 00 Julio 2018-12-27 2018-12-27 Outpatient E [facility] MED 7500 [facility] 07:50:00 07:50:00 Results Test Description Test Time Test Comments Results Result Comments Source CHEM PANEL 2019-02-13 2.1 [facility] 09:03:00 CHEM PANEL 2019-02-13 0.2 [facility] 09:03:00 CHEM PANEL 2019-02-13 0.9 [facility] 09:03:00 CHEM PANEL 2019-02-13 0.7 [facility] 09:03:00 CHEM PANEL 2019-02-13 5.2 [facility] 09:03:00 CHEM PANEL 2019-02-13 2.1 [facility] 09:03:00 CHEM PANEL 2019-02-13 3.1 [facility] 09:03:00 CHEM PANEL 2019-02-13 21 [facility] 09:03:00 CHEM PANEL 2019-02-13 49 [facility] 09:03:00 CHEM PANEL 2019-02-13 09:03:00 Test Item Value Reference Range Interpretation Comme nts A/G Ratio (test code = A/G Ratio) 1.5 1 0.7-1.6 [facility] GFDHF9391-31-26 09:03:0035[facility]annCHEM PANEL 2019-02-13 09:03:0096[facility]annCHEM VBUNY3014-06-89 09:03:000.59[facility]annCHEM ZRLZH4886-01-62 09:03:33303Oqllsbhv HermannCHEM XYESK4842-36-98 09:03:003.5[facility]annCHEM VOHAR1140-34-18 09:03:38474Yktdqojw HermannCHEM SPZDU8028-66-62 09:03:0028[facility]annCHE[facility] OBSCH3397-08-38 09:03:008.0 [facility]annCHE[facility] PDORW4738-43-41 09:03:37600Rdqfsvzt HermannCHEM PANEL 2019-02-13 09:03:0010[facility]annCHEM ZNEBX7403-34-00 09:03:008.5[facility]annCHEM UYSAV0205-78-11 09:03:002.4[facility] DlafycjFJFGOVYFXH7623-22-14 09:03:008.3[facility] WraqktkDDNCIRDCQH1406-95-40 09:03:0010.3[facility] NDZMSGVNDU2770-99-63 09:03:003.30[facility] LrrumafBCVLDAQPLN4444-15-77 09:03:00 30.7[facility] RtjaalpJMFTGNVIGX2746-05-74 09:03:0014.7[facility]annHEMATOLOGY 2019-02-13 09:03:0033.6[facility] WefclhmFLQABAJOWE9117-33-64 09:03:00 Test Item Value Reference Range Interpretation Comments MCH (test code = MCH) 31.2 pg 27.0-31.0 [facility] TdqxtqlTCKQWIAJVC7045-40-22 09:03:0092.9[facility] HermannHEMATOLOGY 2019-02-13 09:03:008.6[facility] ZtouupxRSWTOHNAID3364-54-98 09:03:0082[facility] XwqyxheZKLSRRJPXL9467-60-90 09:03:00 Test Item Value Reference Range Interpretation Comments INR (test code = INR) 1.14 1 0.85-1.17 [facility] JpugiyiBARVRRXHNR8988-79-44 09:03:00 Test Item Value Reference Range Interpretation Comments PT (test code = PT) 14.4 s 12.0-14.7 [facility] VgluvznBEMIJOACYN5318-90-80 09:03:00 Test Item Value Reference Range Interpretation Comments PTT (test code = PTT) 30.5 s 22.9-35.8 [facility] KwcshrzKWBTSJBCPV2933-23-99 09:03:0011.2[facility]annHEMATOLOGY 2019-02-13 09:03:001.8[facility] KfiapzlCPWOMAXLGD0949-93-40 09:03:006.6[facility] OmngeavNANHQSJMLH1360-50-07 09:03:000.4[facility] YenrgqbAPRBDWTHWC5359-19-98 09:03:000.1[facility] IczqdgwTFAJLCISNC3021-69-28 09:03:000.9[facility] EFEFCBEZZV5801-89-13 09:03:000.6[facility] EtbbbcjBQCEPHFKIR2903-90-53 09:03:007.3 [facility] ZxefpzgMFAKQXELDZ1088-69-18 09:03:0079.3[facility] HermannPARATHYROID WAMFDIM8755-45-99 09:03:001.05[facility] HermannPARATHYROID KUZESDH6737-81-55 09:03:001.07[facility] HmuonchUOYFGEOCIA7468-98-53 20:42:0010.6[facility] RPWTWYJFCV8556-55-33 20:42:0031.1[facility] HermannCHEM BDLVK2005-31-24 16:36:00 1.8[facility] DwtevnzVCUZUWBMIIIA7136-01-85 16:36:007.8[facility] HYSRAXDRZWPY7939-18-55 16:36:0094[facility] XvdpgqnPRIQGHMNGTXA7124-63-53 16:36:00 0.61[facility] DcocttyLMJRQZMSBOHW0103-10-90 16:36:33709Naalpvul [facility] GVKUBZXWVRGT6219-96-00 16:36:94917Jypekygl KvvbbacVTCAPEABWPAH8284-94-45 16:36:003.8[facility] HkzryjpWBIBNXWGJLCV9557-65-04 16:36:0012[facility] WQQZCUJJZBCP1674-38-30 16:36:0029[facility] FvwaffeTHMKTVBYATWS4295-37-69 16:36:00 8.3[facility] DydhyphNCWBBAQQCLKM8358-66-78 16:36:0097[facility]annHEMATOLOGY 2019-02-12 16:36:005.9[facility] JzkvpufVRFKUBAGCW1970-21-96 16:36:007.7[facility] IsmrysiVZXEXTXUFK1319-93-53 16:36:0085.7[facility] CwrhzsfESDTULAUSX2458-04-82 16:36:000.7[facility] YcczdrvDCDEQPMKUA1288-92-84 16:36:000.6[facility] LAIUPIQDBT6428-75-89 16:36:008.1[facility] SppszzvHSJUWLSHTP8432-04-89 16:36:000.1 [facility] HncnyziICIUKCBPRW9852-22-68 16:36:000.6[facility]annHEMATOLOGY 2019-02-12 16:36:000.1[facility] DcgwnegBQHPWYHGAF0834-62-93 16:36:00 Test Item Value Reference Range Interpretation Comments INR (test code = INR) 1.17 1 0.85-1.17 [facility]twEZPTQWNWMG2932-03-18 16:36:00 Test Item Value Reference Range Interpretation Comments PT (test code = PT) 14.7 s 12.0-14.7 [facility] NortheastMssmhmwPMBEWCORUN9347-58-26 16:36:00 Test Item Value Reference Range Interpretation Comments PTT (test code = PTT) 32.2 s 22.9-35.8 [facility] NortheastVsvhgghDWCRNSSTSM8482-16-44 16:36:0010.8[facility]annHEMATOLOGY 2019-02-12 16:36:003.42[facility] PojrfnvAITXKMMVIV4218-73-64 16:36:00 Test Item Value Reference Range Interpretation Comments MCH (test code = MCH) 31.5 pg 27.0-31.0 [facility] NortheastZahetkdOICHDQVNOT4148-94-19 16:36:0093.1[facility]annHEMATOLOGY 2019-02-12 16:36:0031.9[facility] AmgqpcvVQJZRUUESA3750-00-60 16:36:0014.8[facility] GfwautjRKTYZFETKD8455-45-68 16:36:0095[facility] GusegxjCMKSOBHMMK0834-51-01 16:36:0033.8[facility] OzsfogfCKZPDWNCVJ5741-09-44 16:36:009.5[facility] YJACCIUIOV1483-11-97 16:36:008.6[facility] HermannPARATHYROID DIHJAVZ2457-17-77 16:36:001.09[facility] HermannPARATHYROID XUJWZRS9202-24-35 16:36:001.12[facility] KzqwxltNPZFLTAPZT3075-99-78 15:51:00 Test Item Value Reference Range Interpretation Comments POC Activated Clotting Time (test code 302 s = POC Activated Clotting Time) [facility] NortheastNtsnigzICDCROGAUE3609-92-86 14:38:00 Test Item Value Reference Range Interpretation Comments POC Activated Clotting Time (test code 281 s = POC Activated Clotting Time) [facility]RvgcxgoPWMAHBBSQV5028-46-06 14:32:00 Test Item Value Reference Range Interpretation Comments POC Activated Clotting Time (test code 287 s = POC Activated Clotting Time) [facility] QMSXVGJ8027-62-59 10:55:00Negative (02/12/19 5:55 AM) [facility] HermannCARDIAC XZSFFGO3362-16-33 10:55:33292Kxadddam HermannCHEM PANEL 2019-02-12 10:55:002.1[facility] HermannCHEM UTBXI3086-38-65 10:55:0014[facility] HermannCHEM VWDAZ7772-22-00 10:55:77558Zodnsufr HermannCHEM VBXBE6234-67-66 10:55:000.70[facility] HermannCHEM GAZNH4602-70-39 10:55:68924Jsuytgyx HermannCHEM XMXSJ0754-34-60 10:55:26763Gwnhaxbp HermannCHEM AOYYL2345-09-13 10:55:009.0 [facility]annCHEM UGVEB0128-87-65 10:55:0028[facility]annCHEM PANEL 2019-02-12 10:55:004.3[facility] HermannCHEM NFMBS1341-81-99 10:55:0089[facility] HermannCHEM GUONR5985-69-93 10:55:004.1[facility] HermannCHEM DUWWM7544-38-06 10:55:0024[facility] HermannCHEM GUDSG0132-48-71 10:55:0030[facility] HermannCHEM IHZBC8924-79-29 10:55:007.0[facility]annCHEM MNSZC4912-47-08 10:55:000.9 [facility]annCHEM TJUAH7735-19-46 10:55:0062[facility] HermannCHEM PANEL 2019-02-12 10:55:00 Test Item Value Reference Range Interpretation Comments B/C Ratio (test code = B/C Ratio) 20 02-17 [facility]annCHEM CDLDQ5731-12-20 10:55:0012.3[facility] HermannCHEM PANEL 2019-02-12 10:55:002.9[facility] HermannCHEM NAMQU0219-81-08 10:55:00 Test Item Value Reference Range Interpretation Comments A/G Ratio (test code = A/G Ratio) 1.4 1 0.7-1.6 [facility] SdqigdrVBTWDTIIGJ6363-34-39 10:55:000.6[facility] HermannHEMATOLOGY 2019-02-12 10:55:000.3[facility] VsgzvpiLBYTGKHUJN7975-71-06 10:55:001.0[facility] FdwtlcnDJYRPXZFYA3058-39-66 10:55:000.1[facility] RsxyuilEUWKXDNDUS2589-91-21 10:55:004.1[facility] YfnclzeLCDKQJEVBL4575-91-43 10:55:005.3[facility] WNONYBTOOD1234-95-65 10:55:001.0[facility] OpytwnpNCHOZXYFDX0722-70-37 10:55:009.4 [facility] SvkcbudEOCAPJBTHM2176-15-62 10:55:0016.6[facility] HermannHEMATOLOGY 2019-02-12 10:55:00Normal (02/12/19 5:55 AM)[facility] GeopqsqPWSQSLWFFD8840-48-82 10:55:0067.7[facility] EzxgqihDPNCNBQDFS8667-65-81 10:55:00Normal (02/12/19 5:55 AM)[facility] JvelxddIUARUEKKZR4093-28-33 10:55:00 Test Item Value Reference Range Interpretation Comments INR (test code = INR) 0.99 1 0.85-1.17 [facility] OwyhhxgFPJFTUQNML0200-21-48 10:55:00 Test Item Value Reference Range Interpretation Comments PTT (test code = PTT) 26.3 s 22.9-35.8 [facility] RqzxdvcUUATMTEPLN3678-54-53 10:55:00 Test Item Value Reference Range Interpretation Comments PT (test code = PT) 12.9 s 12.0-14.7 [facility] VorucstJNNQRVSOOQ7720-08-90 10:55:95675Ukxjaoww HermannHEMATOLOGY 2019-02-12 10:55:009.0[facility] BbjuzhbORRKQNDPFO6400-83-80 10:55:0092.8[facility] XusufgnRXBHKDVUXR4595-60-77 10:55:00 Test Item Value Reference Range Interpretation Comments MCH (test code = MCH) 31.6 pg 27.0-31.0 [facility] NortheastQssazisJVIYYAWKBO1384-83-23 10:55:006.0[facility] HermannHEMATOLOGY 2019-02-12 10:55:004.26[facility] SnossuyJQXWCODIEZ8044-59-81 10:55:0034.0[facility] LfaafoiAUVWADLPQA1860-67-71 10:55:0014.7[facility] HermannURINE AND STOOL 2019-02-12 10:55:00Negative (02/12/19 5:55 AM)[facility] AND STOOL 2019-02-12 10:55:00Negative (02/12/19 5:55 AM)[facility] AND STOOL 2019-02-12 10:55:00Negative (02/12/19 5:55 AM)[facility] AND STOOL 2019-02-12 10:55:00<1.0[facility]annURINE AND SZCNC1122-05-87 10:55:00 Yellow *NA*(02/12/19 5:55 AM)[facility] AND NIXIL9067-26-88 10:55:00 Test Item Value Reference Range Interpretation Comments UA pH (test code = UA pH) 7.0 1 5.0-8.0 [facility] AND NKGVK0596-28-99 10:55:00 Test Item Value Reference Range Interpretation Comments UA Spec Grav (test code = UA Spec 1.015 1 Grav) [facility] UZMTA9913-79-64 10:55:00Marked *ABN*(02/12/19 5:55 AM) [facility] AND FQFCZ3782-48-70 10:55:00Negative *NA*(02/12/19 5:55 AM) [facility]BL[facility] JYIWLCV3381-87-27 10:53:00Product available (02/12/19 5:53 AM)[facility]BL[facility] SLBVKXJ3765-21-75 10:53:00Product available (02/12/19 5:53 AM)[facility] HermannCHEM QIPOQ3742-84-77 18:16:0089[facility] CHEM OEKIS8735-31-26 18:16:000.7[facility] HermannCTA Heart/Coronary art TAVR [id number] 12:57:00CARDIAC COMPUTED TOMOGRAPHY ANGIOGRAPHYDATE: 01/26/2019INDICATION: Aortic stenosis.COMPARISON: noneTECHNIQUE:After obtaining a preliminary hansard reporter image, contrast imaging was performed on [employer] ONE G ENESIS, 320 detector rows - 640 slice, [employer] USAscanner.A dedicated, limited window, imagingprotocol was used, with single breathhold, retrospective ECG gating, and automated arrhythmia rejection.A low osmolar contrast agent was used; 18 cc Omnipaque-350 IV contrast wasdelivered via a 18 gauge IV catheter, utilizing a power injector, at 5 cc/secinjection rate, and followed by 50 cc of normalsaline bolus as a chaser.Collimated images were reformatted at 0.5 mm intervals, and sent to an offlineindependent workstation for interpretation, using:- 3D anatomic reconstructions: curved multiplanar reconstructions (MPR),maximum intensity projections (MIP), and multi-planar imaging.- 4D cineangiography reconstructions, for functional evaluation of cardiacvalves and ventricular chambers.Effective radiation dose: 6.5 mSv.OVERALL STUDY QUALITY: Excellent.FINDINGS:Aortic valve: Trileaflet,with severe calcification,and asymmetric involvementprimarily of the noncoronary cusp.Coronary Arteries:This patient has a right dominant system with the origin of the coronaryarteries being normal.Left main: Normal caliber vessel, which bifurcates into the LAD and LCXarteries, and also gives off a patent ramus intermedius branch. The vesseldisplays an ostial atheroma, calcified, not resulting into a flow-limiti ngstenosis. The remaining of the vessel is patent and free of atheroma..LAD: Normal caliber vessel, which gives rise to two diagonal branches. Thevessel and its branches are nearly free of atheroma andpatent.LCx: Normal caliber, nondominant vessel, which gives rise to one obtusemarginal branch. The vessel and its branches are free of atheroma and patent.RCA: Normal caliber, dominant vessel, which give rise to one right ventricularmarginal branch, and bifurcates into the PDA and ABUNDIO branches. The vessel andits branches are free of atheroma and patent.Myocardium Appearance & Function: Left ventricle is normal in size, andsystolic function, with moderate concentric hypertrophy.Ejection Fraction:>65%IMPRESSION:Aortic valve disease.Nonobstructive coronary artery disease.--Read by: Julio Aguilar MDDictated Date/time: 01/26/19 16:23Electronically Signed by: Julio Aguilar MD 01/27/1916:37FINAL REPORTUnSh[facility] Chest/Abd/Pelvis TAVR [id number] 12:56:00EXAM: CTA CHESTEXAM: CTA ABDOMEN AND PELVISINDICATION: 78 years old Male with aortic stenosisTECHNIQUE: Following the administration of intravenous contrast, 3 mm slicesfrom the thoracic inlet through the pubic symphysis were obtained in arterialvenous and precontrast phase. Images are reviewed on 3D w orkstation.COMPARISON: NoneFINDINGS:Vascular Measurements:Ascending aorta: 37 mm x 39 mmAortic arch: 30 mm.Mid-descending thoracic aorta: 27 mm x 26 mmAorta at diaphragm: 26 mm x 27 mmAorta at celiac axis: 27 mm x 25 mmAorta at superior mesenteric artery: 22 mm x 22 mmMid-infrarenal aorta: 18 mm x 18 mmRight common iliac artery: 10 mm x 11 mmRight external iliac artery: 8 mm x 8 mmRight common femoral artery: 9 mm x 9 mmLeft common iliac artery: 12 mm x 12 mm stent in placeLeft external iliac artery: 8.5 mm x 8 mm stent in placeLeft common femoral artery: 9 mm x 8.6 mmCalcific scores:Ascending aorta: 1Aortic arch: 2Descending thoracic aorta: 1Aorta at diaphragm: 1Suprarenal abdominal ao rta: 1Infrarenal abdominal aorta: 20 :none1 :punctate calcifications2 : <50% of vessel circumference is confluent calcification3 : >50% of vessel circumference is confluent calcificationOther vascular findings:Dense calcifications aortic valve otherwise minimal atheroscleroticcalcificationsNo evidence of dissection.Ectasia of the ascending aorta.SMA SHERIF and celiac axis patent. There is some soft and hard plaque in theorigin of the celiac axis but no significant narrowing. 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 No pulmonary emboli seen No cardiomegaly. No pericardial effusion.Lymph Nodes: No adenopathy by CT size criteria.Mediastinum: No significant abnormality.Lungs demonstrate minimaldependent changes. Moderate2 centrilobularemphysematous changes in the lung apices. 0.9 cm nodule inthe left upper lobeseries 3 image 36. Right upper lobe groundglass nodule measuring 0.8 cm series3 image 80. There is also a lesion series 3 image 129 which is a bulla and thensome solid tissue near it. This is small but deserves follow-up in 3-6 months.It could be a scar cancer. Calcified granuloma in the right lower lobe.The liver, spleen, pancreas and adrenals are unremarkable. Horseshoe typekidneyEvaluation of the stomach, small bowel, and colon are limited by lack of POcontrast. Minimal sigmoiddiverticuli without evidence of diverticulitis.Osseous structures are remarkable for minimal multilevel degenerative diskdiseaseDiastases rectiIMPRESSION:1. Refer to dedicated CT cardiac for cardiac findings.2. No pulmonary thromboemboli identified3. Ectasia of the ascending aorta.4. Mild centrilobular emphysematous changes in the upper lobes. Subcentimeterpulmonary nodules in the left upper lobeand right upper lobe. Recommend 6-12month follow-up.5. Diverticulosis without evidence of diverticulitis.6. Left common iliac/external iliac stent graft.I have reviewed these images and agree with the above findings.--This report was dictated by a Big Data Hadoop Developer/Fellow/Physician Transfer And Pumphouse Operator. Ihavepersonallyreviewed the images as well as the interpretation and agree with the findings.Read by: Serene Grove MD Resident/Fellow/PhysicianAssistant: Serene Barboza MDDictated Date/time: 01/27/19 15:25Electronically Signed by: Leoncio Del Castillo MD 01/29/1908:49FINAL REPORTUnM[facility] PhysiciansTobacco Use Bdnuwvsaw3387-03-92 15:00:00 Test Item Value Reference Range Interpretation Comments Completed (test code = Completed) DONE [facility] PhysiciansCHEM ISUWI6169-31-95 09:59:000.58[facility] CHEM NHRYM3185-82-52 09:59:0096[facility] HermannCHEM OLIQX4644-79-32 16:10:000.52 [facility] HermannCHEM OWWZR1751-66-43 16:10:01752Ckrmjsmn HermannHEMATOLOGY 2018-12-26 16:10:0012.2[facility]
[2020-02-03] MEDS ORDERED: LIDOCAINE VISCOUS 2% SOLN 15 ML UDC ONE (13:56)
[2020-02-03] MEDS ORDERED: MORPHINE 4 MG/ML SYR ONE (15:41)
--- NOTE | 2020-02-03 16:30 | EDPHYS ---
Physician Documentation [facility] Name: Rod Mccray Age: 79 yrs Sex: Male : 1940 Arrival Date: 02/03/2020 Time: 13:40 Bed 13 Private MD: ED Physician Isacc Shelton HPI: 02/02 14:26 This 79 yrs old Male presents to ER via EMS with complaints of Blood In jr8 Catheter. 14:26 The patient presents with urinary symptoms, retention, unable to void. Onset: The jr8 symptoms/episode began/occurred acutely, today. Modifying factors: The symptoms are alleviated by nothing, the symptoms are aggravated by nothing. Associated signs and symptoms: Pertinent positives: abdominal pain, hematuria. Severity of symptoms: At their worst the symptoms were moderate, in the emergency department the symptoms are unchanged. The patient has not experienced similar symptoms in the past. The patient has not recently seen a physician. Patient brought in by EMS after family could not get patients urinary catheter to flow. Stated that he had one put in because he was having trouble urinating. Is currently on high dose morphine via hospice care for end stage lymphoma and AML. Family stated that today patient started to have gross hematuria and clots. Now cannot pass urine through catheter and that his abdomen is getting distended. Wanted to see if we could fix the blockage . Historical: - Allergies: 15:36 No Known Allergies; iw - Home Meds: 14:06 lisinopril 5 mg Oral tab 1 tab [Active]; levothyroxine 25 mcg tab 1 tab once daily iw [Active]; clopidogrel 75 mg Oral tab 1 tab once daily [Active]; carvedilol 3.125 mg Oral tab 1 tab every 12 hours [Active]; atorvastatin 10 mg Oral tab 1 tab once daily [Active]; - PMHx: 14:06 Hypothyroidism; iw 15:36 Leukemia; lymphoma; iw - PSHx: 14:06 Aortic valve replacement; iw - Immunization history:: Adult Immunizations. - Social history:: Smoking status: . ROS: 14:26 Abdomen/GI: Positive for abdominal distension, Negative for nausea, vomiting, and jr8 diarrhea. 14:26 : Positive for small amounts, hematuria. 14:26 All other systems are negative. Exam: 14:26 Eyes: Pupils equal round and reactive to light, extra-ocular motions intact. Lids and jr8 lashes normal. Conjunctiva and sclera are non-icteric and not injected. Cornea within normal limits. Periorbital areas with no swelling, redness, or edema. ENT: Nares patent. No nasal discharge, no septal abnormalities noted. Tympanic membranes are normal and external auditory canals are clear. Oropharynx with no redness, swelling, or masses, exudates, or evidence of obstruction, uvula midline. Mucous membranes dry. Cardiovascular: Tachycardic with a normal S1 and S2. No gallops, murmurs, or rubs. Normal PMI, no JVD. No pulse deficits. Respiratory: Lungs have equal breath sounds bilaterally, clear to auscultation and percussion. No rales, rhonchi or wheezes noted. No increased work of breathing, no retractions or nasal flaring. Abdomen/GI: Soft, non-tender, with normal bowel sounds. Lower abomdinal distension noted over the bladder region. No guarding or rebound. No evidence of tenderness throughout. Skin: Warm, dry with normal turgor. Normal color with no rashes, no lesions, and no evidence of cellulitis. MS/ Extremity: Pulses equal, no cyanosis. Neurovascular intact. Full, normal range of motion. 14:26 Neuro: Orientation: to person, place, Mentation: slow to respond, Motor: moves all fours, seizure activity, is not displayed by the patient, Abnormal movements: there are no abnormal movements. Vital Signs: 13:43 BP 133 / 89; Pulse 115; Resp 16 S; Temp 97.8; Pulse Ox 96% on R/A; iw 14:04 BP 137 / 78; Pulse 113; Resp 17; Pulse Ox 95% on R/A; iw 15:25 BP 115 / 66; Pulse 107; iw 15:45 BP 78 / 50; Pulse 115; Resp 28; Pulse Ox 97% on R/A; hb 16:30 BP 113 / 60; Pulse 110; Resp 25; Pulse Ox 99% on R/A; vc 17:00 BP 84 / 52; Pulse 112; Resp 22; Pulse Ox 100% on R/A; vc MDM: 13:46 Patient medically screened. jr8 15:47 Data reviewed: vital signs, nurses notes, lab test result(s). Data interpreted: Pulse jr8 oximetry:. Counseling: I had a detailed discussion with the patient and/or guardian regarding: the historical points, exam findings, and any diagnostic results supporting the discharge/admit diagnosis, lab results. ED course: Patient has large volume of minnie hematuria present in blount bag. Was able to irrigate some but still distended. Family does not want further work up for condition. Patient acutely became hypotensive and unresponsive. Concern that there may be large volume blood loss in bladder. Patient is on Hospice. Family just wants us to make him comfortable at this point as it appears patient is acutely getting worse and cannot tolerate further intervention. Family Does not want us to continue to irrigate and decompress bladder. Will discharge patient back home for end of life care with hospice team who I spoke to and is aware of condition . 17:04 ED course: Monitored patient for a while. Patient never regained consciousness. Will jr8 have voluntary movement of right side of body from time to time only. VS somewhat better. Could have been vagal response from bladder irrigation or worsening of condition. Both were discussed with family. Family and POA still do not want to do anything further. Patient d/c'd back to home under hospice care . 02/02 15:21 Order name: Glucose, Ancillary Testing; Complete Time: 15:46 EDMS 02/02 13:45 Order name: Hematuria blount cath; Complete Time: 14:26 jr8 Administered Medications: No medications were administered Disposition: 02/03/20 16:29 Discharged to Home. Impression: Hematuria. - Condition is Undetermined. - Discharge Instructions: Hematuria, Adult. - Medication Reconciliation Form, Thank You Letter, Antibiotic Education, Prescription Opioid Use form. - Follow up: Private Physician; When: As needed; Reason: Recheck today's complaints, Continuance of care, Re-evaluation by your physician. - Problem is new. - Symptoms have worsened. Addendum: 02/04/2020 18:41 Co-signature as Attending Physician, Isacc Shelton MD I agree with the assessment and c melgar plan of care. Signatures: Isacc Shelton MD MD cha Williams, Irene, RN Sancho Esteban PA PA jr8 Marycruz Real RN RN vc Corrections: (The following items were deleted from the chart) 02/02 16:28 15:47 ED course: Patient has large volume of minnie hematuria present in blount bag. Was jr8 able to irrigate some but still distended. Patient acutely became hypotensive and unresponsive. Concern that there may be large volume blood loss in bladder. Patient is on Hospice. Family just wants us to make him comfortable at this point as passing appears to be eminent. Will monitor patient for a while to make decision if we admit or keep in ED . jr8 17:13 16:29 02/03/2020 16:29 Discharged to Home. Impression: Hematuria. Condition is vc Undetermined. Forms are Medication Reconciliation Form, Thank You Letter, Antibiotic Education, Prescription Opioid Use. Follow up: Private Physician; When: As needed; Reason: Recheck today's complaints, Continuance of care, Re-evaluation by your physician. Problem is new. Symptoms have worsened. jr8 17:30 14:26 Patient brought in by EMS after family could not get patients urinary catheter to jrMelvin flow. Stated that he had one put in because he was having trouble urinating. Is currently on high dose morphine for end stage lymphoma and AML. Family stated that today patient started to have gross hematuria and clots. Now cannot pass urine through catheter and that his abdomen is getting distended . jr8 17:32 15:47 ED course: Patient has large volume of minnie hematuria present in blount bag. Was jr8 able to irrigate some but still distended. Patient acutely became hypotensive and unresponsive. Concern that there may be large volume blood loss in bladder. Patient is on Hospice. Family just wants us to make him comfortable at this point as passing appears to be eminent. Does not want us to continue to irrigate and decompress bladder. Will discharge patient back home for end of life care with hospice team who I spoke to and is aware of condition . jr8 17:32 17:04 ED course: Monitored patient for a while. Patient never regained consciousness. jr8 Will have voluntary movement of left side of body from time to time only. VS somewhat better. Could have been vagal response from bladder irrigation or worsening of condition. Both were discussed with family. Family and POA still do not want to do anything further. Patient d/c'd back to home under hospice care . jr8
--- NOTE | 2020-02-03 16:30 | ER ---
Nurse's Notes [facility] Name: Rod Mccray Age: 79 yrs Sex: Male : 1940 Arrival Date: 02/03/2020 Time: 13:40 Bed 13 Private MD: Diagnosis: Hematuria Presentation: 02/02 13:43 Chief complaint: EMS states: pt has hx of leukemia and lymphoma, had recent fall that iw resulted in a large brain bleed, pt is now paralyzed on left side, on hospice, pt requested blount due to pain yesterday, today blount has stopped draining and there is blood in tubing, hospice nurse tried to replace but blount remains clogged, pt now has lower abd distention and pain. Coronavirus screen: Proceed with normal triage. Patient denies a cough. Patient denies shortness of breath or difficulty breathing. Patient denies measured and/or subjective temperature greater than 100.4F prior to today's visit. Patient denies travel on a cruise ship or to a country the [facility] currently lists as an affected area. Patient denies contact with known and/or suspected case of COVID-19. Ebola Screen: Patient negative for fever greater than or equal to 101.5 degrees Fahrenheit, and additional compatible Ebola Virus Disease symptoms Patient denies exposure to infectious person. Patient denies travel to an Ebola-affected area in the 21 days before illness onset. No symptoms or risks identified at this time. Initial Sepsis Screen: Does the patient meet any 2 criteria? No. Patient's initial sepsis screen is negative. Does the patient have a suspected source of infection? No. Patient's initial sepsis screen is negative. Risk Assessment: Do you want to hurt yourself or someone else? Patient reports no desire to harm self or others. Onset of symptoms was February 02, 2020. 13:43 Acuity: CELSO 3 iw 13:43 Method Of Arrival: EMS: [facility] iw Historical: - Allergies: 15:36 No Known Allergies; iw - Home Meds: 14:06 lisinopril 5 mg Oral tab 1 tab [Active]; levothyroxine 25 mcg tab 1 tab once daily iw [Active]; clopidogrel 75 mg Oral tab 1 tab once daily [Active]; carvedilol 3.125 mg Oral tab 1 tab every 12 hours [Active]; atorvastatin 10 mg Oral tab 1 tab once daily [Active]; - PMHx: 14:06 Hypothyroidism; iw 15:36 Leukemia; lymphoma; iw - PSHx: 14:06 Aortic valve replacement; iw - Immunization history:: Adult Immunizations. - Social history:: Smoking status: . Screenin:44 Abuse screen: Denies threats or abuse. Nutritional screening: No deficits noted. tw2 Tuberculosis screening: No symptoms or risk factors identified. Fall Risk Secondary diagnosis (15 points) impaired mobility. Assessment: 13:45 General: Appears ill, emaciated, Behavior is listless, unresponsive. iw 13:45 Pain: Unable to use pain scale. FLACC scale score is 5 out of 10. Patient is iw unresponsive. Neuro: Level of Consciousness is awake, listless, obtunded, Oriented to none. Cardiovascular: Capillary refill is > 3 seconds in bilateral fingers Patient's skin is warm and dry. Respiratory: Respiratory effort is even, labored, Respiratory pattern is regular. GI: Abdomen is distended, Abd is rigid in suprapubic area. Derm: Skin is intact, Skin is pale. Musculoskeletal: Range of motion: limited in left shoulder and left hip. 14:50 Reassessment: pt became unresponsive to painful stimuli, pt became tachypneic and then iw apneic, BP dropped to 80's systolic, episode lasted approx 2-3 min, family called to bedside. 15:00 Reassessment: sancho at bedside to speak with and daughter. iw 15:00 Reassessment: Patient asked, "what is that noise," informed him its the alarm stating hb he is breathing faster than normal patient states, "oh" patient becomes unresponsive, pulse 116, BP 83/58, R 22, spO2 90%. Family updated. Patient does not respond to painful stimuli. 15:37 Reassessment: All family at bedside now. hb 16:30 Reassessment: Patient appears in no apparent distress at this time. No changes from vc previously documented assessment. family does not want us to continue to irrigate patients bladder. 17:00 Reassessment: Patient appears in no apparent distress at this time. No changes from vc previously documented assessment. patient now responding to painful stimuli.. Vital Signs: 13:43 BP 133 / 89; Pulse 115; Resp 16 S; Temp 97.8; Pulse Ox 96% on R/A; iw 14:04 BP 137 / 78; Pulse 113; Resp 17; Pulse Ox 95% on R/A; iw 15:25 BP 115 / 66; Pulse 107; iw 15:45 BP 78 / 50; Pulse 115; Resp 28; Pulse Ox 97% on R/A; hb 16:30 BP 113 / 60; Pulse 110; Resp 25; Pulse Ox 99% on R/A; vc 17:00 BP 84 / 52; Pulse 112; Resp 22; Pulse Ox 100% on R/A; vc ED Course: 13:40 Patient arrived in ED. iw 13:44 Sancho Collado PA is PHCP. jr8 13:44 Isacc Shelton MD is Attending Physician. jr8 13:44 Bed in low position. Call light in reach. Side rails up X2. screener and blender on. Pulse tw2 ox on. NIBP on. Warm blanket given. 13:44 Arm band placed on. tw2 13:50 Blount cath removed intact, balloon deflated. jp3 13:55 Triage completed. iw 14:05 3-way catheter inserted, using sterile technique, 20 Fr. jp3 15:36 Angela Manuel, RN is Primary Nurse. hb 17:10 No provider procedures requiring assistance completed. Patient did not have IV access vc during this emergency room visit. Administered Medications: No medications were administered Outcome: 16:29 Discharge ordered by . jr8 17:10 Discharged to home via ambulance. vc 17:10 Condition: good 17:10 Condition: Patient sent home on hospice, only responds to painful stimuli, daughter at side. 17:10 Discharge instructions given to family, Instructed on discharge instructions, vc Demonstrated understanding of instructions. 17:13 Patient left the ED. vc Signatures: Ludivina Nice, RN RN Sancho Collado PA PA jr8 Angela Manuel RN RN Jennie Taveras RN RN tw2 Stevo Galicia jp3 Marycruz Real RN RN vc Corrections: (The following items were deleted from the chart) 15:28 13:15 General: Appears ill, emaciated, iw iw 02/03 00:57 06/ 15:00 Reassessment: hb vc
[2020-02-03 17:26] VITALS: BP 78/50; TEMP 97.8; O2SAT 97
== END 2020-02-03 17:13 | disposition home or self-care (01) ==
LOC: ER 13:33
DX: R31.9 Hematuria, unspecified (principal); C85.90 Non-Hodgkin lymphoma, unspecified, unspecified site; G81.94 Hemiplegia, unspecified affecting left nondominant side
CPT/HCPCS: 82947; 99284